=== PATIENT | female | born 1955 | race Caucasian/White ===

== ENCOUNTER 2017-12-04 10:58 | Day surgery (SDC) | payer OTHER, SELFPAY ==
--- NOTE | 2017-12-04 | COLBX_PTH ---
PATIENT: DESIREE EPPERSON LOC: EN U#:[id number] AGE/SX: 61/F ROOM: RE12/04/[address]: Dr. Max Jones MD : 1955 BED: DIS: 12/04/2017 SPEC #: [id number] RECD: 12/04/17 14:21 STATUS: VERONICA VEENA #: [id number] NORY: 12/04/17 00:[address]: Max Jones DEPT: SURGICAL PATHOLOGY RECD BY: Minh Dalal ENTERED: 12/04/17 14:22 SP TYPE: COLON BX OTHR DR: Dr. Terry Murdock MD Tissues: Cecum, NOS Procedures: Surgery Specimen Level IV HEADER OPERATION: Colonoscopy (MAC) PRE-OP DIAGNOSIS: Screening, previous colon polyps TISSUE SUBMITTED: Biopsy of cecal polyp MICROSCOPIC DIAGNOSIS Cecal polyp, biopsy: Tubular adenoma. SJ:angie 12/05/17 MICROSCOPIC DESCRIPTION Slides are reviewed. GROSS DESCRIPTION Received in fixative is one container labeled with the patient's name and designated cecal polyp. The specimen consists of one irregular fragment of light burden soft tissue that measures 0.2 x 0.2 x 0.1 cm. The specimen is totally submitted in one cassette. / AM:angie 12/04/17 TC:1 CPT: 07727
--- NOTE | 2017-12-04 07:31 | HP.PCM_ITS ---
History and Physical Date of Admission: 12/04/17 HISTORY AND PHYSICAL ? Verónica Blas 1955 ? REFERRING PHYSICIAN: ~~Self ? CHIEF COMPLAINT: ~~colon consult ? HPI: The patient is a 61 year old female referred for endoscopy. ~Verónica notes no history of colon complaints. ~She denies any change in bowel habits, weight changes, blood in stools, black tarry stools or abdominal pain. ~She notes a maternal aunt and uncle with colon cancer but no first-degree relatives with colon cancer. ~The patient ~notes no history of upper GI complaints aside from rare episodes of reflux. ? Verónica has ~undergone prior endoscopy. ~Last was in [address] Adame with removal of adenomatous polyp, 3-year follow-up recommended. ? Past medical history is significant for hypertension, hyperlipidemia, type II diabetes mellitus controlled with glucophage, depression, obesity. ~She denies any chest pain, shortness of breath or recent hospitalizations. ~Patient noted recall from a prior procedure done with moderate sedation. ~Her most recent endoscopy procedure was done under Monitored Anesthetic Care and patient did well with this. ? ? PAST?MEDICAL?HISTORY PAST MEDICAL HISTORY Diagnosis Date ? Colon polyps ? ? Depression with anxiety ? ? Diabetes mellitus, type II (HCC) ? ? GERD (gastroesophageal reflux disease) ? ? Hyperlipidemia ? ? d/c self from zocor b/c of myalgias ? Migraine ? ? Obesity (BMI 30-39.9) ? ? RAJ (obstructive sleep apnea) ? ? noncompliant with CPAP ~~ ? ? PAST?SURGICAL?HISTORY PAST SURGICAL HISTORY Procedure Laterality Date ? COLONOSCOP W/ OR W/O [facility] SPEC ? 11/02/11 ? Colonoscopy repeat 3 years ? COLONOSCOPY ? 2001 ? EGD W/O OR W/BRUSH/WASH ? 11/02/11 ? EGD ? HYSTERECTOMY HX ? 1999 ? Dr. Silva. For excessive bleeding ? PAST SURGICAL HISTORY OF ? 1997 aprox. ? lumbar discectomy L5 ? PAST SURGICAL HISTORY OF ? 2005 ? Lap emilee. ~ ? ? ? CURRENT?MEDICATIONS ? Current Outpatient Prescriptions: ascorbic acid (VITAMIN C) 500 mg tablet Take 500 mg by mouth once daily. citalopram (CELEXA) 20 mg tablet Take 1 tablet by mouth once daily. Valsartan-Hydrochlorothiazide (DIOVAN HCT) 80-12.5 mg per tablet Take 1 tablet by mouth once daily. metoprolol succinate ER (TOPROL XL) 25 mg 24 hr tablet Take 1 tablet by mouth once daily. simvastatin (ZOCOR) 40 mg tablet TAKE 1 TABLET DAILY AT BEDTIME FOR CHOLESTEROL metFORMIN (GLUCOPHAGE) 500 mg tablet TAKE 2 TABLETS WITH BREAKFAST AND 1 TABLET AT LUNCHTIME diclofenac sodium (VOLTAREN) 1 % topical gel Apply 2-4 g to affected area four times daily. Blood-Glucose Meter (ONE TOUCH ULTRAMINI) monitoring kit 1 Each as needed. blood sugar diagnostic (ONE TOUCH ULTRA TEST) test strip Use as instructed daily, 250.00, no insulin. Lancets (ONE TOUCH ULTRASOFT LANCETS) lancets Test blood sugar(s) ~1 times daily. Dx:250.00, Insulin: no. Cyanocobalamin 1,000 mcg TbER Take 1 capsule by mouth once daily. [place]-3 Fatty Acids-Vitamin E (FISH OIL) 1,000 mg cap Take 1 capsule by mouth. ~ CALCIUM CARBONATE/VITAMIN D3 (CALCIUM 500 + D, D3, ORAL) Take ~by mouth. ~ omeprazole 20 mg capsule Take 20 mg by mouth as needed. ~ ? No current facility-administered medications for this visit. ? ALLERGIES: Demerol [Meperidine (Pf)]; Lisinopril; Vicodin [Hydrocodone- Acetaminophen] ? PERSONAL HISTORY: SOCIAL?HISTORY Social History ~~Marital status: ~~~~~~~~~~~~Spouse name: Pasquale ~~~~~~~~~~~ ~~Years of education: ~~~~~~~~~~~~~~~~Number of children: 2 ~~~~~~~~ ? Occupational History Occupation ~~~~~~~~~Employer ~~~~~~~~~~~Comment ~~~~~~~~~~~~ [employer] ~~~~~[employer] MD ~~~~~ ? Social History Main Topics ~~Smoking status: Former Smoker ~~~~~~~~~~~~~~~~~~~~~~~~~~~~~~~~~~~~~~~~~~~~~~~~ ~~~~~~~~ ~~~~~Packs/day: 1.00 ~~~~~Years: 10.00 ~~ ~~~~~Types: Cigarettes ~~~~~Quit date: 01/16/2011 ~~Smokeless tobacco: Never Used ~~~~~~~~~~~~~~~~~~~ ~~Alcohol use: Yes ~~~~~~~~ ~~~~~Comment: social- couple times a week ~~Drug use: No ~~~~~~~~~ ~~Sexual activity: Yes ~~~~~~~~~~~~~~Partners with: Male ~~~~~Comment: goes by Rosa Isela (rhymes with Carly) ? ~~ ? FAMILY HISTORY: FAMILY?HISTORY FAMILY HISTORY Problem Relation Age of Onset ? Asthma Father ? ? Colon Cancer Maternal Aunt ? ? Colon Cancer Maternal Uncle ? ? Colon Cancer Maternal Uncle ? ? Emphysema Maternal Aunt ? ? Heart Maternal Aunt ? ? Heart Paternal Uncle ? ? ? CABG ? Diabetes Paternal Uncle ? ? Diabetes Paternal Uncle ? ? Heart Paternal Uncle ? ? ? NC ? Hypertension Paternal Uncle ? ? Ischemic Heart Disease Paternal Uncle ? ? Alcohol/Drug Sister ? ? ? REVIEW OF SYMPTOMS: ~~The review of systems data was entered by the nurse and reviewed by me ? Nursing Notes: Raisa Rahman LPN ~09/22/2017 ~8:25 AM ~Signed REVIEW OF SYSTEMS: ~~~~~General:~~~The patient denies fatigue, denies weight loss, denies weight gain, denies feeling hot, and denies feelings of cold. ~~~~~Eyes: ~The patient denies glaucoma, NOTES eye injury/surgery, does not wear glasses or contacts. ~~~~~Ear/Nose/Throat: ~The patient denies allergies, denies hayfever, denies ear infections, and denies bloody noses. ~~~~~Cardiovascular: ~The patient denies chest pain, denies heart disease, NOTES high blood pressure,denies cardiac stent, denies prior heart attack, denies irregular heart beat, NOTES high cholesterol, ~denies poor circulation, denies heart failure, other cardiac issues, denies claudication, denies cold feet, denies peripheral arterial stent. ~~~~~Respiratory: ~The patient denies tuberculosis, denies pneumonia, denies frequent cough, denies pulmonary embolism, denies shortness of breath, and denies coughing up blood. ~~~~~Gastrointestinal: ~The patient denies difficulty swallowing, NOTES acid reflux, denies ulcers, denies vomiting, denies jaundice/hepatitis, denies gallbladder problems, denies black or tarry stools, denies hemorrhoids, denies bleeding from rectum, denies diverticulitis, denies constipation, NOTES diarrhea , denies loss of stool control, and denies hernias. ~~~~~Kidney/Bladder: ~The patient denies kidney stones, denies urine infections , and denies bloody urine. ~~~~~Skin: ~The patient denies a history of skin cancer, denies bleeding/ changing moles, and denies a history of skin rash. ~~~~~Neurologic: ~The patient denies a history of epilepsy/convulsions, NOTES headaches, denies head/spinal injuries, and denies stroke/TIA. ~~~~~Psychiatric: ~The patient denies psychiatric medications, NOTES depression , and denies voices, denies substance abuse. ~~~~~Endocrine: ~The patient denies thyroid disorders, NOTES diabetes, and denies hormonal problems. ~~~~~Hematologic: ~The patient denies a history of bruising, denies bleeding, and denies anemia, denies blood clots. ~~~~~Infections: ~The patient denies a history of measles and mumps, denies rheumatic fever, and denies sexually transmitted diseases. ~~~~~Musculoskeletal: ~The patient denies back pain/injury, NOTES back problems , denies sciatica, denies knee/foot trouble, NOTES arthritis, or denies gout. ? ? When was patient's last Mammogram screening? 09/2017 ? ~Last Colonoscopy: ~2011 [facility] ? Raisa Rahman LPN ? Raisa Rahman LPN ~09/22/2017 ~8:45 AM ~Signed BP recheck 152/84. ~I have confirmed and edited as necessary, the PFSH and ROS obtained by others. ? PHYSICAL EXAMINATION: ? General: ~The patient is 61 year old female, well nourished, well hydrated in no acute distress. ~The patient is oriented to time, place, and person. ? VITALS: Blood pressure 168/100, pulse 80, weight 95.3 kg (210 lb).~Body mass index is 38.1 kg/m?.~Repeat BP 152/84 ? HEENT: ~Normal cephalic, ataumatic, pupils are equally round, sclera are anicteric, mucous membranes are moist, oropharynx is clear. ~Neck has no masses , asymmetry or lymphadenopathy. ~ ? Respiratory: ~Clear to auscultation and percussion. ~Normal respiratory excursion and pattern. ? Cardiac: ~Examination is regular rate and rhythm. ? Abdominal exam: ~Soft, nontender, ~with no palpable masses. ~No hepatosplenomegaly. ~No palpable hernias. ? Rectal exam: exam deferred ? Extremities: ~no clubbing, cyanosis or edema. ~No adenopathy. ? ? LABORATORY VALUES: As Noted ? RADIOLOGIC STUDIES: ~As Noted ? Assessment ~ IMPRESSION: encounter for screening colonoscopy ? PLAN: ~We will plan for screening colonoscopy.~~We discussed the risks and benefits of the planned endoscopy. ~I have informed the patient that complications can occur including failure to complete the endoscopy and perforation. ~The patient had the opportunity to ask questions concerning the planned endoscopy. ~My staff has also explained the procedure to the patient in understandable terms and has given the patient printed material concerning the procedure. ~The patient freely consents to surgery. ? I plan to use Miralax bowel preparation for endoscopy ? The patient has recall from their previous endoscopy performed under conscious sedation. ~I therefore plan to perform the procedure under monitored anesthetic care. ? Diagnoses: (Z86.010) Personal history of colonic polyps ~(primary encounter diagnosis) ? ~This note will be forwarded to Dr. Raúl Murdock MD. ~~ Return to Clinic: The patient is instructed to follow-up with me 1 week post operatively. ? Nilsa Alfaro PA-C
[2017-12-04 11:23] VITALS: BP 168/99; PULSE 108; RESP 16; TEMP 37.4; O2SAT 100; BMI 34.7
[2017-12-04 11:31] LABS: Bedside Glucose 147 mg/dL (70-110)
--- NOTE | 2017-12-04 12:46 | OP.ENDO_ITS ---
Patient Name: Verónica Blas Procedure Date: 12/04/2017 12:17 PM Date of : 1955 Age: 61 Procedure: Colonoscopy Indications: High risk colon cancer surveillance: Personal history of colonic polyps Providers: Max Jones MD Medicines: Monitored Anesthesia Care Patient Profile: This is a 61 year old female. Refer to note in patient chart for documentation of history and physical. Last Colonoscopy: 3 years ago. Complications: No immediate complications. Procedure: Pre-Anesthesia Assessment: - Prior to the procedure, a History and Physical was performed, and patient medications and allergies were reviewed. The patient is competent. The risks and benefits of the procedure and the sedation options and risks were discussed with the patient. All questions were answered and informed consent was obtained. Patient identification and proposed procedure were verified by the physician, the nurse and the cover seamer in the procedure room. Mental Status Examination: alert and oriented. Airway Examination: normal oropharyngeal airway and neck mobility. Respiratory Examination: clear to auscultation. CV Examination: normal. Prophylactic Antibiotics: The patient does not require prophylactic antibiotics. Prior Anticoagulants: The patient has taken no previous anticoagulant or antiplatelet agents. ASA Grade Assessment: II - A patient with mild systemic disease. After reviewing the risks and benefits, the patient was deemed in satisfactory condition to undergo the procedure. The anesthesia plan was to use moderate sedation / analgesia (conscious sedation). Immediately prior to administration of medications, the patient was re-assessed for adequacy to receive sedatives. The heart rate, respiratory rate, oxygen saturations, blood pressure, adequacy of pulmonary ventilation, and response to care were monitored throughout the procedure. The physical status of the patient was re-assessed after the procedure. After I obtained informed consent, the scope was passed under direct vision. Throughout the procedure, the patient's blood pressure, pulse, and oxygen saturations were monitored continuously. The colonoscope was introduced through the anus and advanced to the cecum, identified by the appendiceal orifice, ileocecal valve and palpation. The colonoscopy was performed without difficulty. The patient tolerated the procedure well. The quality of the bowel preparation was good. Scope In: 12:26:51 PM Scope Withdrawal Time 0 hours 6 minutes 39 seconds Scope Out: 12:41:12 PM Total Procedure Duration Time 0 hours 14 minutes 21 seconds Findings: The perianal and digital rectal examinations were normal. A diminutive polyp was found in the cecum. The polyp was sessile. The polyp was removed with a hot biopsy forceps. Resection and retrieval were complete. Many medium-mouthed diverticula were found in the entire colon. The exam was otherwise without abnormality. The retroflexed view of the distal rectum and anal verge was normal and showed no anal or rectal abnormalities. Impression: - One diminutive polyp in the cecum, removed with a hot biopsy forceps. Resected and retrieved. - Diverticulosis in the entire examined colon. - The examination was otherwise normal. - The distal rectum and anal verge are normal on retroflexion view. Recommendation: - Discharge patient to home. - Resume previous diet. - Continue present medications. - Telephone my office for pathology results in 1 week. - Repeat colonoscopy in 5 years for screening purposes. Procedure Code(s): --- Professional --- 64494, Colonoscopy, flexible; with removal of tumor(s), polyp(s), or other lesion(s) by hot biopsy forceps Diagnosis Code(s): --- Professional --- Z86.010, Personal history of colonic polyps CPT copyright 2017 [employer]. All rights reserved. The codes documented in this report are preliminary and upon rating examiner review may be revised to meet current compliance requirements. Max Jones MD 12/04/2017 12:45:34 PM This report has been signed electronically. Number of Addenda: 0 Note Initiated On: 12/04/2017 12:17 PM
[2017-12-04 12:47] VITALS: BP 120/74; BP 168/99; PULSE 93; RESP 16; TEMP 37.2; O2SAT 93
[2017-12-04 12:50] VITALS: BP 127/69; BP 168/99; PULSE 87; RESP 16; O2SAT 94
[2017-12-04 12:55] VITALS: BP 138/87; BP 168/99; PULSE 84; RESP 16; O2SAT 94
[2017-12-04 13:02] VITALS: BP 148/87; BP 168/99; PULSE 84; RESP 16; TEMP 37.4; O2SAT 97
[2017-12-04 13:18] VITALS: BP 168/99
== END 2017-12-04 13:28 | disposition home or self-care (01) ==
LOC: EN 11:00 → AC 11:01
PROVIDERS: Family Provider Family Medicine; PCP Family Medicine; Visit Provider Surgery
PROC: 0DJD8ZZ Inspection of Lower Intestinal Tract, Via Natural or Artificial Opening Endoscopic (ICD-10-PCS; CPT 45378; principal; 2017-12-04 11:55)
DX: Z12.11 Encounter for screening for malignant neoplasm of colon (principal); D12.0 Benign neoplasm of cecum; Z86.010 Personal history of colon polyps; E11.9 Type 2 diabetes mellitus without complications; I10 Essential (primary) hypertension; E78.5 Hyperlipidemia, unspecified; G47.33 Obstructive sleep apnea (adult) (pediatric); K21.9 Gastro-esophageal reflux disease without esophagitis; E66.9 Obesity, unspecified; F32.9 Major depressive disorder, single episode, unspecified; Z78.0 Asymptomatic menopausal state; Z91.19 Patient's noncompliance with other medical treatment and regimen; Z79.84 Long term (current) use of oral hypoglycemic drugs; Z79.899 Other long term (current) drug therapy; Z87.891 Personal history of nicotine dependence; Z80.0 Family history of malignant neoplasm of digestive organs
CPT/HCPCS: 45384; 82962; 88305; J7120

== ENCOUNTER 2023-03-09 17:12 | Emergency (ER) | payer OTHER, SELFPAY ==
[2023-03-09 17:13] VITALS: BP 193/74; PULSE 117; RESP 22; TEMP 36.6; O2SAT 94; BMI 36.8
--- NOTE | 2023-03-09 19:12 | RAD_ITS ---
INDICATION: cough EXAMINATION/TECHNIQUE: X-RAY - XR Chest 1 View COMPARISON: FINDINGS: LINES/DEVICES: None. LUNGS: No consolidation, edema or effusion. Interstitial prominence. No pneumothorax. MEDIASTINUM AND CARDIOVASCULAR STRUCTURES: Cardiac silhouette not enlarged. Central airways and mediastinal contour are unremarkable. BONES AND SOFT TISSUES: Degenerative vertebral changes. RAD/Chest 1 View (Portable) IMPRESSION: Interstitial prominence. Electronically Signed: Nicola Xiong DO at 19:44 EST ,
--- NOTE | 2023-03-09 19:13 | EX.ED.DYSGE1 ---
HPI History of Present Illness Chief Complaint: General Illness Informant: patient Onset/Context/Timing Onset: Weeks Context: Gradual Onset Timing: Intermittent Current Severity: Mild Maximum Severity: Mild Narrative Narrative: 67-year-old female past medical history of diabetes. She has had a 3-week history of cough productive of phlegm. Saw her nurse practitioner who treated her with a Z-Steven. Said that improved but now has dysuria and a fever of 101. Mild right flank pain. Today has had some nausea and vomiting and loose stools. No trouble breathing. States her blood sugars have been running around 200. Prior similar symptoms: Yes Recent Illness/Hospitalization: No PFSH [facility] Medical History (Updated 03/09/23 @ 21:[address] Yasmani Kearney MD) Anxiety CPAP (continuous positive airway pressure) dependence Depression Diabetes Former smoker GERD (gastroesophageal reflux disease) Hypertension Osteoporosis Home Medications citalopram 20 mg tablet 20 mg PO DAILY 12/03/16 [History Last Taken Unknown] metformin 500 mg tablet 1,000 mg PO DAILY 12/03/16 [History Last Taken Unknown] oxycodone-acetaminophen 5 mg-325 mg tablet 1 - 2 tab PO Q4H PRN PRN Pain #20 tabs 12/03/16 [Rx Last Taken Unknown] calcium carbonate 500 mg-vitamin D3 5 mcg (200 unit) tablet (Calcium 500 + D) 1 ea PO DAILY 12/16/16 [History Last Taken Unknown] ibuprofen 200 mg tablet 200 mg PO Q6H PRN Pain 12/16/16 [History Last Taken Unknown] meloxicam 15 mg tablet 15 mg PO BID 03/09/23 [History Last Taken Unknown] rosuvastatin 20 mg tablet 20 mg PO DAILY 03/09/23 [History Last Taken Unknown] semaglutide 0.25 mg or 0.5 mg (2 mg/3 mL) subcutaneous pen injector (Ozempic) 0.5 mg subcut .weekly 03/09/23 [History Last Taken 03/05/23] sulfamethoxazole 800 mg-trimethoprim 160 mg tablet (Bactrim DS) 1 tab PO BID 10 days #20 tabs 03/09/23 [Rx Last Taken Unknown] valsartan 80 mg tablet 80 mg PO DAILY 03/09/23 [History Last Taken Unknown] Allergy/AdvReac Type Severity Reaction Status Date / Time meperidine [From Demerol] AdvReac Nausea/Vom/ Verified 12/01/17 09:00 Diarrhea Surgical History (Updated 03/09/23 @ 19:33 by Alessia Olivarez) History of cholecystectomy Social History Smoking Status: Former smoker ROS ROS ED ROS Narrative Is a, vomiting and diarrhea. Fever. Dysuria. Review of Systems ROS Unobtainable: Denies due to encephalopathy Constitutional Constitutional ED: Reports chills and fever(s) Eyes Eyes: Denies blurry vision ENT ENT ED: Denies ear pain Cardiovascular Cardiovascular: Denies chest pain Respiratory/Chest Respiratory/Chest: Reports cough Gastrointestinal Gastrointestinal: Reports abdominal pain, diarrhea, nausea and vomiting; Denies constipation or melena Genitourinary Genitourinary ED: Reports dysuria; Denies hematuria Musculoskeletal Musculoskeletal: Reports back pain; Denies arthralgias or myalgias Integumentary Denies abscess or Abrasions Neurologic Neurologic: Denies headache(s) Psychiatric Psychiatric: Denies anxiety Endocrine Endocrinology: Denies cold intolerance Hematologic/Lymphatic Hematologic/Lymphatic: Reports none Allergic/Immunologic Allergic/Immunologic ED: Denies mouth swelling, tongue swelling or urticaria EXAM Physical Exam Narrative Exam Narrative: 67-year-old female no acute distress vital signs stable afebrile. Pulse ox 94% on room air no signs hypoxia. H EENT exam unremarkable. Neck nontender. Lungs clear to auscultation bilaterally. Heart tachycardic rate of 150 no murmur. Chest wall nontender. Abdomen soft nondistended normal bowel sounds no peritoneal signs. No right upper or right lower quadrant tenderness. Extremities moves all 4. Calves are nontender that edema or cords. No rashes. No cellulitis. Back nontender. Neurologically she is awake alert no focal motor deficits. Const Vital Signs: 03/09/23 17:13 03/09/23 21:08 Temperature 97.8 F 98.3 F Temperature Source Temporal Oral Pulse Rate 117 H 80 Respiratory Rate 22 H 16 Blood Pressure 193/74 H 123/64 H Blood Pressure Mean 113 83 Pulse Ox 94 97 Oxygen Delivery Method Room Air Room Air Positive well nourished and well developed; Negative for cachectic or contractures General Appearance ED: well developed and NAD; Negative for cachectic, contractures, cyanotic, diaphoretic or pallor Nutritional Appearance: Negative for cachectic HEENT Reports moist mucous membranes; Denies dry mucous membranes Negative for trauma or tenderness Mouth ED: No dry mucous membranes Mouth: No dry mucous membranes Eyes PERRL and EOMs intact bilaterally General Eye ED: Negative for pale conjunctiva or scleral icterus Neck no lymphadenopathy, supple and no JVD General: Negative for tenderness Lymph Lymphatic: Negative for other Chest Wall inspection of chest normal and palpation of chest normal Chest: Negative for other Resp normal respiratory effort and clear to auscultation bilaterally Effort and Inspection: Negative for retractions Auscultation: Negative for rales, rhonchi or wheezes Cardio regular rhythm, S1 normal heart sound, S2 normal heart sound and no murmurs; Negative for regular rate Rate: tachycardic Rhythm: Negative for abnormal rhythm GI normal to inspection, nondistended, normoactive bowel sounds, non-tender, non-distended and no masses Inspection: Negative for abdominal distention Auscultation: normoactive bowel sounds Palpation: soft; Negative for tender, guarding or mass Bladder / Kidney Exam: No other Back/Spine no CVA tenderness General Back: Negative for CVA tenderness Cervical Spine: Negative for cervical spine tenderness Thoracic Spine / Upper Back: Negative for thoracic spinal tenderness Lumbar Spine / Lower Back: Negative for lumbar spinal tenderness Extremity normal to inspection General Extremety ED: Negative for edema or tenderness General Extremity: Negative for edema Neuro oriented x3 and CN's II-XII intact bilaterally Sensorium / Orientation: alert; Negative for orientation impaired, lethargic or stuporous Motor Exam: strength 5/5 throughout Psych mental status grossly normal Appearance: Negative for other Attitude: No agitated Mood & Affect: Negative for depressed, anxious or tearful Skin no rashes or lesions noted, no wounds and skin turgor normal General Skin Exam: elasticity normal; Negative for jaundice or pallor Lesions: No lesion noted Rashes: No rashes noted Trauma: Negative for abrasion Wounds: Negative for wounds noted MDM MDM MDM Narrative Medical decision making narrative: Patient with nausea vomiting diarrhea and dysuria. He is a UTI or viral syndrome. Chest x-ray and labs pending. IV fluids. Zofran for nausea. Negative flu test done today at the urgent care per the patient. Patient is doing well at 9:55 PM. On repeat exam. She ambulated to the bathroom. We went over her test results. She has a UTI and may be an early pyelonephritis. Will give a dose of IV Rocephin here. Placed on Bactrim 1 twice daily for 10 days at home. Outpatient follow-up. Fluids and rest. Return if feeling worse. Otherwise follow-up with her primary care provider to ensure she is improving. A urine culture was sent. History & Record Review Discussion w/independent historian: Patient Additional record(s) reviewed:: Prior inpatient record, Prior outpatient record, Prior ED visit and Prior labs Lab Data Attestation: I reviewed the patient's lab results. Lab results narrative: CBC Shows an elevated white count of 16. H&H of 12 and 36. Platelets of 317,000. Chemistries show sodium 133. Gap 10. Normal BUN and creatinine. Glucose 309. Small Liver enzymes unremarkable other than alk phos of 127. Urinalysis shows 25-50 white cells, 5-10 red cells and 3+ bacteria consistent with UTI. Urine culture be sent. Labs: Laboratory Results - last 24 hr 03/09/23 03/09/23 03/09/23 20:50 20:50 20:55 WBC Cancelled Corrected WBC Cancelled RBC Cancelled Hgb Cancelled Hct Cancelled MCV Cancelled MCH Cancelled MCHC Cancelled RDW Std Deviation Cancelled RDW Coeff of Valerie Cancelled Plt Count Cancelled MPV Cancelled Immature Gran % (Auto) Cancelled Neut % (Auto) Cancelled Lymph % (Auto) Cancelled Bath % (Auto) Cancelled Eos % (Auto) Cancelled Baso % (Auto) Cancelled Absolute Neuts (auto) Cancelled Absolute Lymphs (auto) Cancelled Total Counted Cancelled Neutrophils % (Manual) Cancelled Band Neutrophils % Cancelled Lymphocytes % (Manual) Cancelled Monocytes % (Manual) Cancelled Eosinophils % (Manual) Cancelled Basophils % (Manual) Cancelled Metamyelocytes % Cancelled Myelocytes % Cancelled Promyelocytes % Cancelled Blast Cells % Cancelled Plasma Cell % (Manual) Cancelled Other Cells % Cancelled Nucleated RBC % Cancelled Nucleated RBCs/100 WBC Cancelled Differential Comment Cancelled Diff Path Review Cancelled Hypersegmented Neuts Cancelled Atypical Lymphocytes Cancelled Reactive Lymphocytes Cancelled Smudge Cells Cancelled Toxic Granulation Cancelled Toxic Vacuolation Cancelled Dohle Bodies Cancelled Leo Rods Cancelled Platelet Estimate Cancelled Plt Morphology Comment Cancelled RBC Morphology Cancelled Cancelled Polychromasia Cancelled Hypochromasia Cancelled Poikilocytosis Cancelled Basophilic Stippling Cancelled Anisocytosis Cancelled Microcytosis Cancelled Macrocytosis Cancelled Spherocytes Cancelled Sickle Cells Cancelled Target Cells Cancelled Tear Drop Cells Cancelled Ovalocytes Cancelled Stomatocytes Cancelled Bentley-Stoy Bodies Cancelled Irving Cells Cancelled Bite Cells Cancelled Crenated Cell Cancelled Acanthocytes (Spur) Cancelled Rouleaux Cancelled Schistocytes Cancelled Sodium 133 L Potassium 3.7 Chloride 102 Carbon Dioxide 21.0 Anion Gap 10 BUN 15 Creatinine 0.78 Estim Creat Clear Calc 43.18 Est GFR (MDRD) Af Amer 95 Est GFR (MDRD) Non-Af 78 BUN/Creatinine Ratio 19.2 Glucose 309 H Calcium 9.0 Total Bilirubin 0.70 AST 41 H ALT 36 Alkaline Phosphatase 127 H Total Protein 6.5 Albumin 3.1 L Globulin 3.4 Albumin/Globulin Ratio 0.9 Urine Color Yellow Urine Clarity Cloudy Urine pH 6.0 Ur Specific Palmer 1.015 Urine Protein 500 H Urine Glucose (UA) 100 H Urine Ketones 150 A* Urine Occult Blood 250 H Urine Nitrite Negative Urine Bilirubin 1 H Urine Urobilinogen 1 H Ur Leukocyte Esterase 500 H Urine RBC 5-10 SEEN Urine WBC 25-50 SEEN Ur Squamous Epith Cells 0-5 SEEN Urine Bacteria 3+ Urine Mucus 0 SEEN 03/09/23 21:16 WBC 16.0 H Corrected WBC RBC 4.10 L Hgb 12.5 Hct 36.6 L MCV 89.3 MCH 30.5 MCHC 34.2 RDW Std Deviation 39.2 RDW Coeff of Valerie 12.1 Plt Count 317 MPV 10.0 Immature Gran % (Auto) 0.400 Neut % (Auto) 82.1 H Lymph % (Auto) 4.7 L Bath % (Auto) 7.8 Eos % (Auto) 4.6 Baso % (Auto) 0.4 Absolute Neuts (auto) 13.1 H Absolute Lymphs (auto) 0.75 L Total Counted Neutrophils % (Manual) Band Neutrophils % Lymphocytes % (Manual) Monocytes % (Manual) Eosinophils % (Manual) Basophils % (Manual) Metamyelocytes % Myelocytes % Promyelocytes % Blast Cells % Plasma Cell % (Manual) Other Cells % Nucleated RBC % 0 Nucleated RBCs/100 WBC Differential Comment Diff Path Review Hypersegmented Neuts Atypical Lymphocytes Reactive Lymphocytes Smudge Cells Toxic Granulation Toxic Vacuolation Dohle Bodies Leo Rods Platelet Estimate ADEQUATE Plt Morphology Comment RBC Morphology N CHROM Polychromasia Hypochromasia Poikilocytosis Basophilic Stippling Anisocytosis RARE Microcytosis Macrocytosis RARE Spherocytes Sickle Cells Target Cells Tear Drop Cells Ovalocytes RARE Stomatocytes Bentley-Stoy Bodies Soni Cells Bite Cells Crenated Cell Acanthocytes (Spur) Rouleaux Schistocytes Sodium Potassium Chloride Carbon Dioxide Anion Gap BUN Creatinine Estim Creat Clear Calc Est GFR (MDRD) Af Amer Est GFR (MDRD) Non-Af BUN/Creatinine Ratio Glucose Calcium Total Bilirubin AST ALT Alkaline Phosphatase Total Protein Albumin Globulin Albumin/Globulin Ratio Urine Color Urine Clarity Urine pH Ur Specific Palmer Urine Protein Urine Glucose (UA) Urine Ketones Urine Occult Blood Urine Nitrite Urine Bilirubin Urine Urobilinogen Ur Leukocyte Esterase Urine RBC Urine WBC Ur Squamous Epith Cells Urine Bacteria Urine Mucus Radiography Chest X-Ray - ED: 1 View and Read by ED Physician Diagnostic Testing: Clinical Impression(s) from Imaging Studies Chest X-Ray 03/09/23 19:12 IMPRESSION: Interstitial prominence. Electronically Signed: Nicola Xiong DO at 19:44 EST Reading Location ID and State: [facility] / [place] Tel [phone], Service support , Discharge Plan Triage Chief Complaint: General Illness ED Provider: Yasmani Kearney Dx/Rx/DC Orders Clinical Impression: Acute pyelonephritis, Hyperglycemia due to diabetes mellitus, Leukocytosis, Acute UTI Instructions: ED Pyelonephritis, Female (Adult) Prescriptions: New sulfamethoxazole-trimethoprim [Bactrim DS] 800-160 mg tablet 1 tab PO BID 10 Days Qty: 20 0RF No Action metformin 500 MG tablet 1,000 mg PO DAILY Patient Comments: citalopram 20 MG tablet 20 mg PO DAILY Patient Comments: oxycodone-acetaminophen 1 TABLET tablet 1 - 2 tab PO Q4H PRN PRN (Reason: Pain) Qty: 20 0RF ibuprofen 200 MG tablet 200 mg PO Q6H PRN (Reason: Pain) calcium carbonate-vitamin D3 [Calcium 500 + D] 1 EACH tablet 1 ea PO DAILY meloxicam 15 mg tablet 15 mg PO BID Patient Comments: TAKE 1 TABLET BY MOUTH EVERY DAY rosuvastatin 20 mg tablet 20 mg PO DAILY Patient Comments: TAKE 1 TABLET BY MOUTH ONCE DAILY Ozempic 0.25 mg or 0.5 mg (2 mg/3 mL) pen injector 0.5 mg SUBCUT .weekly Patient Comments: INJECT 0.5 (ONE HALF) MILLIGRAM UNDER SKIN ONCE A WEEK valsartan 80 mg tablet 80 mg PO DAILY Patient Comments: TAKE 1 TABLET BY MOUTH ONCE DAILY Primary Care Provider: [facility] Doctor,Out of Referrals: [facility] Doctor,Out of [Primary Care Provider] - 3-5 Days Activity Restrictions/Additional Instructions: Plenty of fluids and rest. Water and cranberry juice. Follow-up with your primary care provider to ensure you are improving. Return if feeling a lot worse. The antibiotic Bactrim 1 pill twice a day start tomorrow soon as you get it. Treated for 10 days in case this is already in your kidney. Disposition Disposition: Home, Self Care
--- OUTSIDE RECORDS SUMMARY | 2023-03-09 20:03 | XMS RPT_ITS | CCD ---
Author Name Unknown Address [address] [place] [address] Organization [facility] Care Team Providers Care Retail Sales Director Name Role Phone Avril Murdock MD Unavailable Avril Murdock MD Primary Care Provider ANDRADE AYALA NP Attending Unavailable ANDRADE AYALA CAR WASHER Consulting Unavailable ANDRADE AYALA CAR WASHER Primary Care Unavailable ANDRADE AYALA CAR WASHER Admitting Unavailable PROVIDER, UNKNOWN Consulting Unavailable AVRIL MURDOCK Primary Care Unavailab le PODLOGAR, RASHAWN Referring Unavailable AVRIL MURDOCK Primary Care Unavailab le PODLOGAR, RASHAWN Attending Unavailable PODLOGAR, RASHAWN Attending Unavailable AVRIL MURDOCK Primary Care Unavailab le PODLOGAR, RASHAWN Referring Unavailable AVRIL MURDOCK Primary Care Unavailab AVRIL Fu Primary Care Unavailab AVRIL Fu Attending Unavailab le PODLOGAR, RASHAWN Referring Unavailable AVRIL MURDOCK Primary Care Unavailab AVRIL Fu Primary Care Unavailab le PODLOGAR, RASHAWN Attending Unavailable AVRIL MURDOCK Primary Care Unavailab le PODLOGAR, RASHAWN Referring Unavailable Avril Murdock MD Unavailable Avril Murdock MD Primary Care Provider Allergies Allergy Classification Reported Allergen(s) Allergy Type Date of Onset Reaction(s) Facility (20 sources) Acetaminophen / HYDROcodone; Translations: [HYDROCODONE-ACETA MINOPHEN] Drug Allergy 0 GI Upset [facility] (20 sources) empagliflozin; Translations: [EMPAGLIFLOZIN] Drug Allergy 0 Other: See Comments [facility] Work Phone: (20 sources) Lisinopril; Translations: [LISINOPRIL] Drug Allergy 8 Cough [facility] Work Phone: (20 sources) Meperidine; Translations: [MEPERIDINE (PF)] Drug Allergy 0 GI Upset [facility] Medications Completed/Discontinued Medications Medication Drug Class(es) Dates Sig (Normalized) Sig (Original) Blood-Glucose Meter (ONE TOUCH ULTRAMINI) monitoring kit (20 sources) Start: 05-07-2014 Blood-Glucose Meter (ONE TOUCH ULTRAMINI) monitoring kit Indications: Diabetes mellitus type II, controlled (HCC) 1 Each as needed. 1 Each 0 05/07/2014 Active Problems Problem Classification Problem Date Documented Da te Episodic/Chronic Anxiety disorders (20 sources) Mixed anxiety and depressive disorder; Translations: [Other specified anxiety disorders] Onset: 02-16-2010 09-17-2010 Chronic Diabetes mellitus with complications (1 source) Type 2 diabetes mellitus with hyperglycemia; Translations: [Type 2 diabetes mellitus with hyperglycemia] Onset: 11-25-2022 Chronic Diabetes mellitus without complication (20 sources) Type 2 diabetes mellitus without complication; Translations: [Type 2 diabetes mellitus without complications] Onset: 09-22-2014 02-12-2017 Chronic Disorders of lipid metabolism (20 sources) Hyperlipidemia; Translations: [Hyperlipidemia, unspecified] Onset: 09-17-2010 03-08-2021 Chronic Essential hypertension (20 sources) Essential hypertension; Translations: [Essential (primary) hypertension] Onset: 10-23-2015 10-23-2015 Chronic Other nutritional; endocrine; and metabolic disorders (5 sources) Obese class II; Translations: [Obesity, unspecified] Onset: 09-17-2010 Chronic Other screening for suspected conditions (not mental disorders or infectious disease) (4 sources) Patient encounter status; Translations: [Encounter for screening mammogram for malignant neoplasm of breast] Onset: 06-07-2022 Episodic Residual codes; unclassified (1 source) Obstructive sleep apnea syndrome; Translations: [Obstructive sleep apnea (adult) (pediatric)] Chronic Unclassified (16 sources) Obesity; Translations: [Class 2 obesity with serious comorbidity and body mass index (BMI) of 37.0 to 37.9 in adult] Onset: 09-17-2010 02-12-2017 Results Test Name Value Interpretation Reference Range Facil ity Vital Signs Date Time Vital Sign Value Performing Clinician Pb engle 05-24-2022 12:03-0400 Body weight 93.35 kg Rashawn Podlogar PIPE LINE GAUGER.SUPERVISOR [employer] Work Phone: [facility] 05-24-2022 12:03-0400 Diastolic blood pressure 78 mm[Hg] Rashawn Podlogar PIPE LINE GAUGER.SUPERVISOR [employer] Work Phone: [facility] 05-24-2022 12:03-0400 Heart rate 88 /min Rashawn Podlogar PIPE LINE GAUGER.SUPERVISOR [employer] Work Phone: [facility] 05-24-2022 12:03-0400 Respiratory rate 18 /min Rashawn Podlogar PIPE LINE GAUGER.SUPERVISOR [employer] Work Phone: [facility] 05-24-2022 12:03-0400 SaO2% (BldA) [Mass fraction] 95 % Rashawn Podlogar PIPE LINE GAUGER.SUPERVISOR [employer] Work Phone: [facility] 05-24-2022 12:03-0400 Systolic blood pressure 132 mm[Hg] Rashawn Podlogar PIPE LINE GAUGER.SUPERVISOR [employer] Work Phone: [facility] 02-01-2022 10:07-0500 Body weight 92.08 kg Rashawn Podlogar PIPE LINE GAUGER.SUPERVISOR [employer] Work Phone: [facility] 02-01-2022 10:07-0500 Diastolic blood pressure 84 mm[Hg] Rashawn Podlogar PIPE LINE GAUGER.SUPERVISOR [employer] Work Phone: [facility] 02-01-2022 10:07-0500 Heart rate 80 /min Rashawn Podlogar PIPE LINE GAUGER.SUPERVISOR [employer] Work Phone: [facility] 02-01-2022 10:07-0500 Respiratory rate 16 /min Rashawn Podlogar PIPE LINE GAUGER.SUPERVISOR [employer] Work Phone: [facility] 02-01-2022 10:07-0500 SaO2% (BldA) [Mass fraction] 95 % Rashanw Podlogar PIPE LINE GAUGER.SUPERVISOR [employer] Work Phone: [facility] 02-01-2022 10:07-0500 Systolic blood pressure 132 mm[Hg] Rashawn Podlogar PIPE LINE GAUGER.SUPERVISOR [employer] Work Phone: [facility] 11-16-2021 13:42-0400 Body weight 96.53 kg Rashawn Podlogar PIPE LINE GAUGER.SUPERVISOR [employer] Work Phone: [facility] 11-16-2021 13:42-0400 Diastolic blood pressure 84 mm[Hg] Rashawn Podlogar PIPE LINE GAUGER.SUPERVISOR [employer] Work Phone: [facility] 11-16-2021 13:42-0400 Heart rate 83 /min Rashawn Podlogar PIPE LINE GAUGER.SUPERVISOR [employer] Work Phone: [facility] 11-16-2021 13:42-0400 Respiratory rate 18 /min Rashawn Podlogar PIPE LINE GAUGER.SUPERVISOR [employer] Work Phone: [facility] 11-16-2021 13:42-0400 SaO2% (BldA) [Mass fraction] 96 % Rashawn Podlogar PIPE LINE GAUGER.SUPERVISOR [employer] Work Phone: [facility] 11-16-2021 13:42-0400 Systolic blood pressure 122 mm[Hg] Rashawn Podlogar PIPE LINE GAUGER.SUPERVISOR [employer] Work Phone: [facility] 10-19-2021 16:45-0400 Diastolic blood pressure 78 mm[Hg] Avril Murdock MD Work Phone: [facility] 10-19-2021 16:45-0400 Heart rate 96 /min Avril Murdock MD Work Phone: [facility] 10-19-2021 16:45-0400 Respiratory rate 16 /min Avril Murdock MD Work Phone: [facility] 10-19-2021 16:45-0400 SaO2% (BldA) [Mass fraction] 97 % Avril Murdock MD Work Phone: [facility] 10-19-2021 16:45-0400 Systolic blood pressure 132 mm[Hg] Avril Murdock MD Work Phone: [facility] 10-05-2021 15:08-0400 Body weight 97.61 kg Avril Murdock MD Work Phone: [facility] 10-05-2021 15:08-0400 Diastolic blood pressure 70 mm[Hg] Avril Murdock MD Work Phone: [facility] 10-05-2021 15:08-0400 Heart rate 100 /min Avril Murdock MD Work Phone: [facility] 10-05-2021 15:08-0400 Respiratory rate 16 /min Avril Murdock MD Work Phone: [facility] 10-05-2021 15:08-0400 SaO2% (BldA) [Mass fraction] 95 % Avril Murdock MD Work Phone: [facility] 10-05-2021 15:08-0400 Systolic blood pressure 134 mm[Hg] Avril Murdock MD Work Phone: [facility] Encounters Encounter Date Encounter Type Care Provider Facility Start: 11-25-2022 End: 11-25-2022 ambulatory [facility] Start: 08-23-2022 End: 08-24-2022 ambulatory AVRIL MURDOCK Facility:[facility] Start: 08-22-2022 End: 08-23-2022 ambulatory RASHAWN CORTEZ Facility:[facility] Start: 06-28-2022 End: 06-29-2022 ambulatory AVRIL MURDOCK Facility:[facility] Start: 06-10-2022 Telephone encounter Rashawn carranza PIPE LINE GAUGER.SUPERVISOR [employer] Work Phone: [facility] Procedures Date Procedure Procedure Detail Performing Clinician Start: 06-07-2022 Dxa bone density zoë dy 1/> sites axial eugenieel Rashawn Cortez PIPE LINE GAUGER.SUPERVISOR [employer] Work Phone: Start: 06-04-2020 Mammography Terry Murdock MD Work Phone: Start: 12-04-2017 Colonoscopy Terry Murdock MD Work Phone: Plan of Treatment Date Care Activity Detail Author Start: 01-03-2024 Hepatitis C antibody , confirmatory test Dilated Retinal Exam [facility] Start: 08-24-2023 Annual PCP Team Director [employer] fouzia Disease Visit Annual PCP Team Chronic Disease Visit [facility] Start: 08-24-2023 Pneumococcal Vaccine : 65+ (2 - PCV) Pneumococcal Vaccine: 65+ (2 - PCV) [facility] Immunizations Immunization Date Immunization Notes Care Provider Fa romana 03-01-2021 COVID-19 vaccine, ag e 12+ yr (PFIZER-BIONTECH - PURPLE TOP) Avril Murdock MD Work Phone: [facility] 02-16-2021 influenza, high-dose , quadrivalent vaccine (FLUZONE HIGH DOSE QUADRIVALENT) Avril Murdock MD Work Phone: [facility] 02-16-2021 pneumococcal polysaccharide vaccine, 23 valent Avril Murdock MD Work Phone: [facility] 02-16-2021 influenza virus vacc ine, unspecified formulation Bone Wstr Work Phone: [facility] 12-20-2018 influenza, injectabl e, quadrivalent, contains preservative Avril Murdock MD Work Phone: [facility] 11-27-2017 influenza, injectabl e, quadrivalent, contains preservative Avril Murdock MD Work Phone: [facility] 02-10-2017 influenza, injectabl e, quadrivalent, contains preservative Avril Murdock MD Work Phone: [facility] 10-15-2015 pneumococcal polysaccharide vaccine, 23 valent Avril Murdock MD Work Phone: [facility] 01-21-2013 influenza virus vacc ine, unspecified formulation Avril Murdock MD Work Phone: [facility] 01-21-2013 tetanus toxoid, redu daniele diphtheria toxoid, and acellular pertussis vaccine, adsorbed Avril Murdock MD Work Phone: [facility] Payers Date Payer Category Payer Private Health Insurance [facility] CHOICE PLUS [id number] 2013-Present [phone] [address] [address] [place] [address] O [id number] 2013 Private Health Insurance [facility] [employer] CHOICE PLUS [id number] 2013-Present [phone] [address] [address] [place] [address] O [id number] 2013 Private Health Insurance [id number] 1955 Unknown [id number] Social History Date Type Detail Facility Start: 10-19-2021 Tobacco smoking status NHIS Ex-smoke r [facility] End: 01-16-2011 History of tobacco use Current smoker [facility] End: 01-16-2011 History of tobacco use Cigarette Smoker [facility] Start: 03-16-2021 End: 05-24-2022 Alcohol intake Current drinker of alcohol (finding) [facility] Start: 12-06-2019 End: 02-01-2022 History SDOH Alcohol Frequency 2 [facility] Start: 12-06-2019 End: 02-01-2022 History SDOH Alcohol Std Drinks 1 [facility] Start: 10-31-2011 History SDOH Alcohol Comment social- couple times a week [facility] Start: 11-08-2019 History SDOH Social Connections Phone 5 [facility] Start: 11-08-2019 End: 02-01-2022 History SDOH Social Connections Get Together 4 [facility] Start: 11-08-2019 End: 02-01-2022 History SDOH Social Connections Sikhism 3 [facility] Start: 11-08-2019 Education 12 [facility] Start: 1955 Sex Assigned At Not on file C [facility] Start: 09-25-2021 End: 10-19-2021 Exposure to SARS-CoV-2 (event) Not sure [facility] Start: 10-19-2021 End: 03-31-2022 Cigarettes smoked current (pack per day) - Reported 1 [facility] Start: 10-19-2021 Tobacco use and exposure Smoke less tobacco non-user [facility] Start: 10-19-2021 End: 02-01-2022 History SDOH Alcohol Frequency 98 [facility] Start: 10-19-2021 History SDOH Physica l Activity DPW 0 [facility] Start: 02-01-2022 End: 03-31-2022 Social connection and isolation panel [facility] In a typical week, h ow many times do you talk on the telephone with family, friends, or neighbors? Patient refused [facility] Do you belong to any clubs or organizations such as pentecostal groups, unions, fraternal or athletic groups, or school groups? No [facility] Are you now , , , , never or living with a partner? [facility] How often to you hav e a drink containing alcohol? Monthly or less [facility] How many standard dr inks containing alcohol do you have on a typical day? 1 or 2 [facility] How often do you hav e 6 or more drinks on 1 occasion? Never [facility] How hard is it for y ou to pay for the very basics like food, housing, medical care, and heating Not very hard [facility] Do you feel stress - tense, restless, nervous, or anxious, or unable to sleep at night because your mind is troubled all the time - these days [OSQ] Only a little [facility] (I/We) worried wheth er (my/our) food would run out before (I/we) got money to buy more. Never true [facility] Medical Equipment Procedure Code Equipment Code Equipment Origin al Text Equipment Identifier Dates Start: 05-07-2014 End: 03-17-2022 Clinical Notes 09-14-2021 to 08-23-2022 Telephone Encounter - Vera Van MA - 06/13/2022 3:26 PM EDTTelephone Encounter - TOM Baig - 06/10/2022 11:16 AM MAYITCTereso delgadillo RT(Arin) - 06/07/2022 10:30 AM EDT Note Date & Type Note Facility 08-23-2022 Note HNO ID: [id number] Author: Avril Murdock MD Service: ? Author Type: Physician Type: Progress Notes Filed: 08/23/2022 12:25 PM Note Text: Chief Complaint Patient presents with: Follow Up: 3 month HPI Desiree Epperson is a 66 year old female who presents here today for Above Complaints.. DIABETES MELLITUS: Ms. Epperson was last seen 3 months ago. Since our last visit she denies excessive thirst or increased frequency of urination, numbness, tingling or pain in extremities, new or unusual visual symptoms, and low sugar/hypoglycemic reactions. Follows a diabetic diet generally not very much. She is compliant with medication(s) and is tolerating med(s) without any side effects. She reports checking her glucose on a twice a day schedule with sugars in the fasting <130 range typically. Before bed, typically <150 with rare readings in the 160-180 range. Patient's last HgA1C was Hemoglobin A1C (%) Date Value 08/22/2022 7.2 05/24/2022 7.6 02/16/2021 9.1 06/01/2020 8.2 ) Last Ophthalmology exam was within the past 12 months Last Podiatry exam was within the past 12 months Past medical history, appointments, medications, allergies reviewed. Previous Medical History PAST MEDICAL HISTORY Diagnosis Date Colon polyps Depression with anxiety Diabetes mellitus, type II (HCC) GERD (gastroesophageal reflux disease) Hyperlipidemia d/c self from zocor b/c of myalgias Hypertension Migraine Obesity (BMI 30-39.9) RAJ (obstructive sleep apnea) noncompliant with CPAP Previous Surgical History PAST SURGICAL HISTORY Procedure Laterality Date COLONOSCOPY 2001 COLONOSCOPY FLX DX W/COLLJ SPEC WHEN PFRMD 11/02/11 Colonoscopy repeat 3 years COLONOSCOPY FLX DX W/COLLJ SPEC WHEN PFRMD 12/04/2017 Colonoscopy ESOPHAGOGASTRODUODENOSCOPY TRANSORAL DIAGNOSTIC 11/02/11 EGD HYSTERECTOMY HX 1999 Dr. Silva. For excessive bleeding PAST SURGICAL HISTORY OF 1997 aprox. lumbar discectomy L5 PAST SURGICAL HISTORY OF 2005 Lap emilee. Family History FAMILY HISTORY Problem Relation Age of Onset Asthma Father Colon Cancer Maternal Aunt Colon Cancer Maternal Uncle Colon Cancer Maternal Uncle Emphysema Maternal Aunt Heart Maternal Aunt Heart Paternal Uncle CABG Diabetes Paternal Uncle Diabetes Paternal Uncle Heart Paternal Uncle [place] Hypertension Paternal Uncle Ischemic Heart Disease Paternal Uncle Alcohol/Drug Sister Patient Allergies ALLERGIES Allergen Reactions Demerol [Meperidine* GI Upset Jardiance [Empaglif* Other: See Comments Yeast infection Lisinopril Cough Vicodin [Hydrocodon* GI Upset Current Medications Current Outpatient Medications on File Prior to Visit Medication Sig metFORMIN (GLUCOPHAGE) 1,000 mg tablet Take 1 tablet by mouth twice daily with meals. rosuvastatin (CRESTOR) 20 mg tablet Take 1 tablet by mouth daily at bedtime. citalopram (CELEXA) 20 mg tablet Take 1 tablet by mouth once daily. valsartan (DIOVAN) 80 mg tablet Take 1 tablet by mouth once daily. hydrOXYzine pamoate (VISTARIL) 25 mg capsule Take 1-2 tablets as needed three times a day for anxiety glimepiride (AMARYL) 4 mg tablet Take 2 tablets by mouth daily with breakfast. SITagliptin phosphate (JANUVIA) 100 mg tablet Take 1 tablet by mouth once daily. hydroCHLOROthiazide 12.5 mg capsule Take 1 capsule by mouth once daily. vitamin I-beeechjtifxy-xkzycwo 500 mg chew Take by mouth. blood sugar diagnostic (BLOOD GLUCOSE TEST) test strip Test blood sugar(s) 2 times daily. Dx: Type 2 DM - Uncontrolled E11.65 Insulin: No Blood-Glucose Meter (ONE TOUCH ULTRAMINI) monitoring kit 1 Each as needed. Kabetogama-3 Fatty Acids-Vitamin E 1,000 mg cap Take 1 capsule by mouth. CALCIUM CARBONATE/VITAMIN D3 (CALCIUM 500 + D, D3, ORAL) Take by mouth. citalopram hydrobromide (CELEXA) 10 mg tablet Take 1 tablet by mouth once daily. (Patient not taking: Reported on 08/23/2022) Insulin Dundee, Disposable, (PEN NEEDLE) 32 gauge x 5/32 Inject 1 Each subcutaneously q 24 HR. Give with each insulin administration. Lancets (ONE TOUCH ULTRASOFT LANCETS) lancets Test blood sugar(s) 1 times daily. Dx:250.00, Insulin: no. No current facility-administered medications on file prior to visit. Social History Social History Tobacco Use Smoking status: Former Packs/day: 1.00 Years: 10.00 Pack years: 10.00 Types: Cigarettes Quit date: 01/16/2011 Years since quittin.6 Smokeless tobacco: Never Vaping Use Vaping Use: Never used Substance Use Topics Alcohol use: Yes Comment: social- couple times a week Drug use: No Review of Symptoms REVIEW OF SYSTEMS GENERAL: No weight loss, malaise or fevers RESPIRATORY: Negative for cough, hemoptysis, wheezing, COPD, dyspnea or shortness of breath CARDIOVASCULAR: Negative for chest pain, leg swelling, hypertension, CHF or palpitations GI: No nausea, vomiting, or diarrhea SKIN: Negative for lesions, carlos manuel (more content not included)... [facility] 06-29-2022 Note Patient Outreach (IN TMMN) DESIREE EPPERSON ([id number]) 1955 F Date Time Provider Department 06/29/22 AVRIL MURDOCK During your visit today, we recorded the following information about you: Allergies As of Date: 06/29/2022 Noted Allergy Reaction DEMEROL (MEPERIDINE (PF)) 01/26/2010 8 - GI Upset JARDIANCE (EMPAGLIFLOZIN) 11/09/2019 14 - Other: See Comments Comments: Yeast infection LISINOPRIL 08/28/2017 3 - Cough VICODIN (HYDROCODONE-ACETAMINOPHE*01/27/20 10 8 - GI Upset Date Reviewed: 06/28/2022 Reviewed by: Eusebia Dalal LPN - Fully Assessed Visit Diagnosis:Encounter for screening mammogram for breast cancer [Z12.31] Order(s):[facility] SCREENING [1440816] Order #: [id number] FUTURE Prescriptions as of 07/04/2022 - metFORMIN (GLUCOPHAGE) 1,000 mg tablet Take 1 tablet by mouth twice daily with meals. - rosuvastatin (CRESTOR) 20 mg tablet Take 1 tablet by mouth daily at bedtime. - citalopram (CELEXA) 20 mg tablet Take 1 tablet by mouth once daily. - valsartan (DIOVAN) 80 mg tablet Take 1 tablet by mouth once daily. - hydrOXYzine pamoate (VISTARIL) 25 mg capsule Take 1-2 tablets as needed three times a day for anxiety - glimepiride (AMARYL) 4 mg tablet Take 2 tablets by mouth daily with breakfast. - SITagliptin phosphate (JANUVIA) 100 mg tablet Take 1 tablet by mouth once daily. - citalopram hydrobromide (CELEXA) 10 mg tablet Take 1 tablet by mouth once daily. - hydroCHLOROthiazide 12.5 mg capsule Take 1 capsule by mouth once daily. - Insulin Dundee, Disposable, (PEN NEEDLE) 32 gauge x 5/32 Inject 1 Each subcutaneously q 24 HR. Give with each insulin administration. - vitamin L-oanszpvxazjd-kaxgldh 500 mg chew Take by mouth. - blood sugar diagnostic (BLOOD GLUCOSE TEST) test strip Test blood sugar(s) 2 times daily. Dx: Type 2 DM - Uncontrolled E11.65 Insulin: No - Blood-Glucose Meter (ONE TOUCH ULTRAMINI) monitoring kit 1 Each as needed. - Lancets (ONE TOUCH ULTRASOFT LANCETS) lancets Test blood sugar(s) 1 times daily. Dx:250.00, Insulin: no. - Kabetogama-3 Fatty Acids-Vitamin E 1,000 mg cap Take 1 capsule by mouth. - CALCIUM CARBONATE/VITAMIN D3 (CALCIUM 500 + D, D3, ORAL) Take by mouth. Problem List As Of Date 06/29/2022 Noted Resolved Depression with anxiety [F41.8] 02/16/2010 Routine gynecological examination [Z01.419] 09/17/2010 Class: Chronic Hyperlipidemia [E78.5] 09/17/2010 Obesity, Class II, BMI 35-39.9 [E66.9] 09/17/2010 Controlled type 2 diabetes mellitus without com*09/22/2014 Essential hypertension [I10] 10/23/2015 Encounter Status:Closed by [employer], [employer] on 07/04/22 [facility] 06-28-2022 Note HNO ID: [id number] Author: Rashawn Cortez APRN.SUPERVISOR [employer] Service: ? Author Type: Nurse Practitioner Type: Progress Notes Filed: 06/28/2022 2:53 PM Note Text: 06/28/2022 Patient presents with: Recheck: 1 month DM follow up SUBJECTIVE: This is a 66 year old that is here today for Above Complaints. DIABETES MELLITUS: Patient wanted to retry oral therapy and stopped the Lantus and restarted her glimepiride and januvia she had. Most recent A1c improved, however she had been taking the Lantus and had just restarted the oral meds two weeks prior. Returns today to discuss blood sugars. Takes blood sugars twice a day and vary from 100-200's. Trying to eat better. No exercise regime. Denies visual changes polyuria and polydipsia Hemoglobin A1C (%) Date Value 05/24/2022 7.6 01/26/2022 8.5 02/16/2021 9.1 06/01/2020 8.2 Citalopram increased at last appointment due to increasing anxiety. Taking and tolerating without side effects. Has not really noticed a difference in her anxiety. Is able to do some deep breathing and relax some. Denies depressive symptoms, SI, HI or insomnia PAST MEDICAL HISTORY Diagnosis Date Colon polyps Depression with anxiety Diabetes mellitus, type II (HCC) GERD (gastroesophageal reflux disease) Hyperlipidemia d/c self from zocor b/c of myalgias Hypertension Migraine Obesity (BMI 30-39.9) RAJ (obstructive sleep apnea) noncompliant with CPAP ALLERGIES Demerol [Meperidine (Pf)], Jardiance [Empagliflozin], Lisinopril, and Vicodin [Hydrocodone-Acetaminophen] MEDICATIONS Current Outpatient Medications Medication Sig glimepiride (AMARYL) 4 mg tablet Take 2 tablets by mouth daily with breakfast. SITagliptin phosphate (JANUVIA) 100 mg tablet Take 1 tablet by mouth once daily. citalopram hydrobromide (CELEXA) 10 mg tablet Take 1 tablet by mouth once daily. hydroCHLOROthiazide 12.5 mg capsule Take 1 capsule by mouth once daily. Insulin Dundee, Disposable, (PEN NEEDLE) 32 gauge x 5/32 Inject 1 Each subcutaneously q 24 HR. Give with each insulin administration. valsartan (DIOVAN) 80 mg tablet Take 1 tablet by mouth once daily. metFORMIN (GLUCOPHAGE) 1,000 mg tablet Take 1 tablet by mouth twice daily with meals. rosuvastatin (CRESTOR) 20 mg tablet Take 1 tablet by mouth daily at bedtime. citalopram (CELEXA) 20 mg tablet Take 1 tablet by mouth once daily. vitamin Z-ogwtfdpnrrax-cnuypvt 500 mg chew Take by mouth. blood sugar diagnostic (BLOOD GLUCOSE TEST) test strip Test blood sugar(s) 2 times daily. Dx: Type 2 DM - Uncontrolled E11.65 Insulin: No Blood-Glucose Meter (ONE TOUCH ULTRAMINI) monitoring kit 1 Each as needed. Lancets (ONE TOUCH ULTRASOFT LANCETS) lancets Test blood sugar(s) 1 times daily. Dx:250.00, Insulin: no. Kabetogama-3 Fatty Acids-Vitamin E 1,000 mg cap Take 1 capsule by mouth. CALCIUM CARBONATE/VITAMIN D3 (CALCIUM 500 + D, D3, ORAL) Take by mouth. No current facility-administered medications for this visit. Medications and allergies reviewed by this provider. SOCIAL HISTORY Social History Tobacco Use Smoking status: Former Packs/day: 1.00 Years: 10.00 Pack years: 10.00 Types: Cigarettes Quit date: 01/16/2011 Years since quittin.4 Smokeless tobacco: Never Vaping Use Vaping Use: Never used Substance Use Topics Alcohol use: Yes Comment: social- couple times a week Drug use: No REVIEW OF SYSTEMS All other reviewed and negative other than HPI. OBJECTIVE: BP 142/80 Pulse 93 Resp 16 Wt 92.4 kg (203 lb 12.8 oz) SpO2 94% BMI 36.98 kg/m? . Vital signs reviewed by this provider. APPEARANCE Well appearing, alert, in no acute distress, well-hydrated, well nourished. EYES conjunctiva and sclera normal. COVID-19 VACCINE(3 - Booster for Kj series) due on 04/26/2021 MAMMOGRAM due on 06/04/2021 LDL CHOLESTEROL due on 02/16/2022 BP CONTROLLED (<130/80) due on 02/16/2022 PNEUMOCOCCAL: 65+(2 - PCV) due on 02/16/2022 ADVANCE DIRECTIVE DISCUSSION Never done SHINGRIX VACCINE(1 of 2) due on 05/25/2023 INFLUENZA(Season Ended) due on 11/11/2022 HBA1C due on 11/24/2022 COLORECTAL CANCER SCREENING due on 12/04/2022 DILATED RETINAL EXAM due on 12/13/2022 DTAP,TDAP,TD(2 - Td or Tdap) due on 01/21/2023 URINE ALBUMIN:CREATININE RATIO due on 05/25/2023 DIABETIC FOOT EXAM due on 05/25/2023 ANNUAL PCP TEAM CHRONIC DISEASE VISIT due on 05/25/2023 BONE DENSITY Completed HEPATITIS C SCREENING Completed ASSESSMENT/PLAN: 1. Type 2 diabetes mellitus without complication, without long-term current use of insulin (HCC) - ICD9: 250.00, ICD10: E11.9 (primary diagnosis) - Barriers to control: lack of exercise - Continue current medications - Blood glucose monitoring on a twice daily schedule - Counseled on healthy diet and regular exercise - Discussed need for and benefit of weight loss. BMI 36.98 kg/(m2) - Discussed diabetic education issues of diabetes complications and monitoring re (more content not included)... [facility] 06-13-2022 Miscellaneous Notes Patient notified and verbalized understanding. Vera Van MA TC to patient with no answer. Unable to leave VM as box is full. Please try again later. TOM Baig Please let patient know bone density testing is normal. Continue over the counter calcium and vitamin D supplement. Rashawn Cortez APRN.BENSON documented in this encounter [facility] 06-07-2022 Note HNO ID: [id number] Author: RT Adam(R) Service: ? Author Type: Technologist Type: Progress Notes Filed: 06/07/2022 10:51 AM Note Text: Radiology Service Progress Note PATIENT NAME: Desiree Epperson DATE OF SERVICE: June 07, 2022 TIME: 10:42 AM PATIENT IDENTITY VERIFICATION COMPLETED USING TWO (2) IDENTIFIERS: Name and Date of confirmed by patient verbally. FALL SCREENING: Has the patient had 2 falls in the last year or 1 fall with injury or currently using an Ambulatory Assistive Device (Walker, Cane, Wheelchair, Crutches, etc.)? No PATIENT GENDER DATA: Female. status: : No status: NO. PATIENT RELEVANT IMPLANT DATA REVIEWED: Not Applicable RADIOLOGY DEPARTMENT: Bone Density PERIPHERAL IV DATA: Not applicable SIGNED BY: RT Adam(R) June 07, 2022 10:42 AM [facility] 06-07-2022 History of Present illness Narrative Radiology Service Progress Note PATIENT NAME: Desiree Epperson DATE OF SERVICE: June 07, 2022 TIME: 10:42 AM PATIENT IDENTITY VERIFICATION COMPLETED USING TWO (2) IDENTIFIERS: Name and Date of confirmed by patient verbally. FALL SCREENING: Has the patient had 2 falls in the last year or 1 fall with injury or currently using an Ambulatory Assistive Device (Walker, Cane, Wheelchair, Crutches, etc.)? No PATIENT GENDER DATA: Female. status: : No status: NO. PATIENT RELEVANT IMPLANT DATA REVIEWED: Not Applicable RADIOLOGY DEPARTMENT: Bone Density PERIPHERAL IV DATA: Not applicable SIGNED BY: RT Adam(R) June 07, 2022 10:42 AM documented in this encounter [facility] 05-25-2022 Miscellaneous Notes Patient notified of message below. Voices understanding. Eusebia Dalal LPN 30 day supply of oral meds sent. Tell her to check blood sugars twice a day and bring readings with her to appointment next month. Rashawn Cortez APRN.SUPER[employer] Patient notified of recommendations, verbalizes understanding of instructions. Pt would like to give the oral meds a longer time. Has an appt in 1 month for follow up. Yareli Boston LPN Please call patient and let her know her A1c has improved from 8.5% to 7.6%, however I do not think the two weeks of the oral medications improved this that much. I do think the insulin helped lower it. I recommend we continue with the insulin an titrate it by two units every three days until her fasting blood sugar is 150 or less. Rashawn Cortez APRN.CNP documented in this encounter [facility] 05-24-2022 Note HNO ID: [id number] Author: Rashawn Cortez APRN.CNP Service: ? Author Type: Nurse Practitioner Type: Progress Notes Filed: 05/24/2022 2:35 PM Note Text: 05/24/2022 Patient presents with: F/U 3 Month SUBJECTIVE: This is a 66 year old that is here today for Above Complaints. Since last office appointment has been in good health without ER visits or hospitalizations. DIABETES MELLITUS: Since our last visit she denies excessive thirst or increased frequency of urination, chest pain or dyspnea , numbness, tingling or pain in extremities, new or unusual visual symptoms, low sugar/hypoglycemic reactions, weight loss/gain, lightheadedness/dizziness, and bowel changes/loose stools. Follows a diabetic diet most of the time. Reports she ran out of her insulin about 2 weeks ago. Is taking her metformin. Started taking her glimepiride and januvia she had left over. Reports blood sugars are better than when she was taking the insulin- patient recalls three recent blood sugars of 92, 118, 179. Reports she is working on dietary changes. She reports checking her glucose on a once a day schedule . Patient's last HgA1C was Hemoglobin A1C (%) Date Value 01/26/2022 8.5 10/05/2021 8.1 02/16/2021 9.1 06/01/2020 8.2 ) Last Ophthalmology exam was within the past 12 months HTN: Patient is compliant with meds Yes Monitors bp at home: No. Denies side effects: Yes. Chest pain: No. Dyspnea: No. Edema: No. Palpitations: No. Syncope: No. Headache: No. Dizziness: No. HYPERLIPIDEMIA: Patient is taking medications: No. Patient is watching diet: No. Patient denies myalgias: No. Patient denies gi upset: No Anxiety: reports has been having anxiety attacks. Overwhelmed by work. Taking citalopram as prescribed. Denies depressive symptoms. Does not attend counseling ELLY: 9 PAST MEDICAL HISTORY Diagnosis Date Colon polyps Depression with anxiety Diabetes mellitus, type II (HCC) GERD (gastroesophageal reflux disease) Hyperlipidemia d/c self from zocor b/c of myalgias Hypertension Migraine Obesity (BMI 30-39.9) RAJ (obstructive sleep apnea) noncompliant with CPAP ALLERGIES Demerol [Meperidine (Pf)], Jardiance [Empagliflozin], Lisinopril, and Vicodin [Hydrocodone-Acetaminophen] MEDICATIONS Current Outpatient Medications Medication Sig Insulin Dundee, Disposable, (PEN NEEDLE) 32 gauge x 5/32 Inject 1 Each subcutaneously q 24 HR. Give with each insulin administration. LANTUS SOLOSTAR U-100 INSULIN 100 unit/mL (3 mL) Inject 28 Units subcutaneously daily at bedtime. valsartan (DIOVAN) 80 mg tablet Take 1 tablet by mouth once daily. metFORMIN (GLUCOPHAGE) 1,000 mg tablet Take 1 tablet by mouth twice daily with meals. rosuvastatin (CRESTOR) 20 mg tablet Take 1 tablet by mouth daily at bedtime. citalopram (CELEXA) 20 mg tablet Take 1 tablet by mouth once daily. hydroCHLOROthiazide (HYDRODIURIL, ESIDRIX) 12.5 mg capsule Take 1 capsule by mouth once daily. vitamin O-wosszovjmwhi-gmdggrl 500 mg chew Take by mouth. blood sugar diagnostic (BLOOD GLUCOSE TEST) test strip Test blood sugar(s) 2 times daily. Dx: Type 2 DM - Uncontrolled E11.65 Insulin: No Blood-Glucose Meter (ONE TOUCH ULTRAMINI) monitoring kit 1 Each as needed. Lancets (ONE TOUCH ULTRASOFT LANCETS) lancets Test blood sugar(s) 1 times daily. Dx:250.00, Insulin: no. Kabetogama-3 Fatty Acids-Vitamin E 1,000 mg cap Take 1 capsule by mouth. CALCIUM CARBONATE/VITAMIN D3 (CALCIUM 500 + D, D3, ORAL) Take by mouth. No current facility-administered medications for this visit. Medications and allergies reviewed by this provider. SOCIAL HISTORY Social History Tobacco Use Smoking status: Former Packs/day: 1.00 Years: 10.00 Pack years: 10.00 Types: Cigarettes Quit date: 01/16/2011 Years since quittin.3 Smokeless tobacco: Never Vaping Use Vaping Use: Never used Substance Use Topics Alcohol use: Yes Comment: social- couple times a week Drug use: No REVIEW OF SYSTEMS All other reviewed and negative other than HPI. OBJECTIVE: BP 132/78 Pulse 88 Resp 18 Wt 93.4 kg (205 lb 12.8 oz) SpO2 95% BMI 37.34 kg/m? . Vital signs reviewed by this provider. APPEARANCE Well appearing, alert, in no acute distress, well-hydrated, well nourished. EYES conjunctiva and sclera normal. HEART RRR with normal S1 and S2, no murmurs, no gallops, no JVD appreciated LUNG clear to auscultation. No wheezes, rhonchi or rales EXTREMITIES Extremities normal, No deformities, No skin discoloration, No edema, and Normal pulses bilaterally. SKIN Skin color, texture, turgor normal, no suspicious rashes or lesions Feet: Shoes and socks removed, No deformities, ulcers, calluses, normal distal pulses, and sensitive to 10 gm monofilament BONE DENSITY Never done COVID-19 VACCINE(3 - Booster for Kj series) due on 04/26/2021 MAMMOGRAM due on 06/04/2021 URINE ALBUMIN:CREATININE RATIO due on (more content not included)... [facility] 05-24-2022 Instructions Rashawn Cortez APRN.[facility] - 05/24/2022 12:27 PM EDT BONE MINERAL DENSITY PATIENT INSTRUCTIONS ======= Bone mineral density testing measures the amount of calcium in certain parts of your bones. This information determines how strong your bones are. The test is used to detect osteoporosis, a disease in which the bone's mineral content and density are low, increasing a person's risk of fractures. The lumbar spine (lower back) and the hip are the skeletal sites usually examined. For the test, remember that: 1. You cannot take this test if you are . 2. Eat a normal diet on the day of the test. 3. Take your medications as you normally would. 4. DO NOT take calcium supplements (such as Tums) for 24 hours before the test. 5. On the day of the test, leave valuables (jewelry or credit cards) at home. 6. The test should be performed prior to oral, rectal or IV contrast studies, or at least 7 days after any of these studies. For the test, you may be asked to wear a hospital gown. You will lie on your back, on a padded table, in a comfortable position. Generally, you can resume your usual activities immediately. documented in this encounter [facility] 05-24-2022 History of Present illness Narrative 05/24/2022 Patient presents with: F/U 3 Month SUBJECTIVE: This is a 66 year old that is here today for Above Complaints. Since last office appointment has been in good health without ER visits or hospitalizations. DIABETES MELLITUS: Since our last visit she denies excessive thirst or increased frequency of urination, chest pain or dyspnea , numbness, tingling or pain in extremities, new or unusual visual symptoms, low sugar/hypoglycemic reactions, weight loss/gain, lightheadedness/dizziness, and bowel changes/loose stools. Follows a diabetic diet most of the time. Reports she ran out of her insulin about 2 weeks ago. Is taking her metformin. Started taking her glimepiride and januvia she had left over. Reports blood sugars are better than when she was taking the insulin- patient recalls three recent blood sugars of 92, 118, 179. Reports she is working on dietary changes. She reports checking her glucose on a once a day schedule . Patient's last HgA1C was Hemoglobin A1C (%) Date Value 01/26/2022 8.5 10/05/2021 8.1 02/16/2021 9.1 06/01/2020 8.2 ) Last Ophthalmology exam was within the past 12 months HTN: Patient is compliant with meds Yes Monitors bp at home: No. Denies side effects: Yes. Chest pain: No. Dyspnea: No. Edema: No. Palpitations: No. Syncope: No. Headache: No. Dizziness: No. HYPERLIPIDEMIA: Patient is taking medications: No. Patient is watching diet: No. Patient denies myalgias: No. Patient denies gi upset: No Anxiety: reports has been having anxiety attacks. Overwhelmed by work. Taking citalopram as prescribed. Denies depressive symptoms. Does not attend counseling ELLY: 9 PAST MEDICAL HISTORY Diagnosis Date Colon polyps Depression with anxiety Diabetes mellitus, type II (HCC) GERD (gastroesophageal reflux disease) Hyperlipidemia d/c self from zocor b/c of myalgias Hypertension Migraine Obesity (BMI 30-39.9) RAJ (obstructive sleep apnea) noncompliant with CPAP ALLERGIES Demerol [Meperidine (Pf)], Jardiance [Empagliflozin], Lisinopril, and Vicodin [Hydrocodone-Acetaminophen] MEDICATIONS Current Outpatient Medications Medication Sig Insulin Dundee, Disposable, (PEN NEEDLE) 32 gauge x 5/32 Inject 1 Each subcutaneously q 24 HR. Give with each insulin administration. LANTUS SOLOSTAR U-100 INSULIN 100 unit/mL (3 mL) Inject 28 Units subcutaneously daily at bedtime. valsartan (DIOVAN) 80 mg tablet Take 1 tablet by mouth once daily. metFORMIN (GLUCOPHAGE) 1,000 mg tablet Take 1 tablet by mouth twice daily with meals. rosuvastatin (CRESTOR) 20 mg tablet Take 1 tablet by mouth daily at bedtime. citalopram (CELEXA) 20 mg tablet Take 1 tablet by mouth once daily. hydroCHLOROthiazide (HYDRODIURIL, ESIDRIX) 12.5 mg capsule Take 1 capsule by mouth once daily. vitamin P-lonswprckdcr-mwcandl 500 mg chew Take by mouth. blood sugar diagnostic (BLOOD GLUCOSE TEST) test strip Test blood sugar(s) 2 times daily. Dx: Type 2 DM - Uncontrolled E11.65 Insulin: No Blood-Glucose Meter (ONE TOUCH ULTRAMINI) monitoring kit 1 Each as needed. Lancets (ONE TOUCH ULTRASOFT LANCETS) lancets Test blood sugar(s) 1 times daily. Dx:250.00, Insulin: no. Kabetogama-3 Fatty Acids-Vitamin E 1,000 mg cap Take 1 capsule by mouth. CALCIUM CARBONATE/VITAMIN D3 (CALCIUM 500 + D, D3, ORAL) Take by mouth. No current facility-administered medications for this visit. Medications and allergies reviewed by this provider. SOCIAL HISTORY Social History Tobacco Use Smoking status: Former Packs/day: 1.00 Years: 10.00 Pack years: 10.00 Types: Cigarettes Quit date: 01/16/2011 Years since quittin.3 Smokeless tobacco: Never Vaping Use Vaping Use: Never used Substance Use Topics Alcohol use: Yes Comment: social- couple times a week Drug use: No REVIEW OF SYSTEMS All other reviewed and negative other than HPI. OBJECTIVE: BP 132/78 Pulse 88 Resp 18 Wt 93.4 kg (205 lb 12.8 oz) SpO2 95% BMI 37.34 kg/m . Vital signs reviewed by this provider. APPEARANCE Well appearing, alert, in no acute distress, well-hydrated, well nourished. EYES conjunctiva and sclera normal. HEART RRR with normal S1 and S2, no murmurs, no gallops, no JVD appreciated LUNG clear to auscultation. No wheezes, rhonchi or rales EXTREMITIES Extremities normal, No deformities, No skin discoloration, No edema, and Normal pulses bilaterally. SKIN Skin color, texture, turgor normal, no suspicious rashes or lesions Feet: Shoes and socks removed, No deformities, ulcers, calluses, normal distal pulses, and sensitive to 10 gm monofilament BONE DENSITY Never done COVID-19 VACCINE(3 - Booster for Kj series) due on 04/26/2021 MAMMOGRAM due on 06/04/2021 URINE ALBUMIN:CREATININE RATIO due on 02/16/2022 LDL CHOLESTEROL due on 02/16/2022 BP CONTROLLED (<130/80) due on 02/16/2022 PNEUMOCOCCAL: 65+(2 - PCV) due on 02/16/2022 ADVANCE DIRECTIVE DISCUSSION Never done HBA1C due on 04/28/2022 INFLUENZA(1) due on 09/09/2022 SHINGRIX VACCINE(1 of 2) due on 05/25/2023 COLORECTAL CANCER SCREENING due on 12/04/2022 DILATED RETINAL EXAM due on 12/13/2022 DTAP,TDAP,TD(2 - Td or Tdap) due on 01/21/2023 DIABETIC FOOT EXAM due on 05/25/2023 ANNUAL PCP TEAM CHRONIC DISEASE VISIT due on 05/25/2023 HEPATITIS C SCREENING Completed ASSESSMENT/PLAN: 1. Type 2 diabetes mellitus without complication, without long-term current use of insulin (HCC) - ICD9: 250.00, ICD10: E11.9 (primary diagnosis) - control to be determined - discussed with patient she can continue Amaryl and glimepiride at this time- needs to get A1c checked today. Will discuss results with Dr. Murdock - ALBUMIN/CREAT RATIO RND UR - HGB A1C - COMP METABOLIC PANEL - check blood sugar twice a day - follow-up pending blood work 2. Essential hypertension - ICD9: 401.9, ICD10: I10 - good control - Continue current medication(s) - Encouraged dietary sodium restriction/DASH diet - Recommended regular aerobic exercise. - Recommend home blood pressure monitoring, to bring results in on next visit - Discussed need and benefit for weight loss. - Recheck in 3 months, sooner should new symptoms or problems arise. - Goal of BP <130/80 - Recommended no refined sugar, low refined starch, healthy oil intake (olive oil), healthy protein (fish) along the lines of the Mediterranean diet. - HYDROCHLOROTHIAZIDE 12.5 MG CAPSULE 3. Screening for osteoporosis - ICD9: V82.81, ICD10: Z13.820 - DXA-AXIAL SKELETON 4. Obesity, Class II, BMI 35-39.9 - ICD9: 278.00, ICD10: E66.9 Weight decreasing - Behavioral intervention - Lengthy discussion in office today regarding diet and exercise. Discussed use of small plate to eat meals from, drink 1 glass of water 10-15 minutes prior to eating meal, drink 8 glasses of water daily, eat fresh fruit and vegetable during meal first then lean protein such as grilled/baked chicken breast or fish, limit carbohydrate intake (less pasta, breads, rice and snack foods) as well as limiting sugars (desserts etc). Important to count / track your calories and exercise as well. 5. Mixed hyperlipidemia - ICD9: 272.2, ICD10: E78.2 - suboptimal control - Continue current medication. - Encouraged following a low fat, low cholesterol diet. - Discussed the benefits of regular aerobic exercise and weight loss. - Follow up in 12 weeks- recheck at that time. - Encouraged following a low carbohydrate, healthy oil intake diet. 6. ELLY (generalized anxiety disorder) - ICD9: 300.02, ICD10: F41.1 - counseling encouraged - will increase citalopram - CITALOPRAM 10 MG TABLET - follow-up if symptoms fail to improve Rashawn Dodgelogpiedad, PIPE LINE GAUGER.SUPERVISOR [employer] Prescription instructions reviewed with patient as applicable. Patient advised if symptoms do not improve or if symptoms worsen sooner, to contact their primary care physician. Potential red flag symptoms discussed with the patient. Reviewed appropriate action plan to take if red flag symptoms occur. Patient agreeable to treatment plan. I spent a total of 30 minutes on the date of the service which included preparing to see the patient, [id number] patient care, completing clinical documentation, obtaining and/or reviewing separately obtained history, performing a medically appropriate examination, counseling and educating the patient/family/caregiver, and ordering medications, tests, or procedures. documented in this encounter [facility] 03-17-2022 Miscellaneous Notes Scheduled for routine F/U 05/24. Sandy Acosta MA Due for follow-up end of April, please assist in scheduling. Rashawn Cortez APRN.CNP Patient phones requesting refills as follows: Requested Prescriptions Pending Prescriptions Disp Refills LANTUS SOLOSTAR U-100 INSULIN 100 unit/mL (3 mL) 5 Each 1 Sig: Inject 28 Units subcutaneously daily at bedtime. FERNANDO-02/01/22 Labs-01/26/22 NOV-none Please review and advise. Yareli Boston LPN documented in this encounter [facility] 02-01-2022 Note HNO ID: [id number] Author: Rashawn Cortez APRN.CNP Service: ? Author Type: Nurse Practitioner Type: Progress Notes Filed: 02/01/2022 10:40 AM Note Text: 02/01/2022 Patient presents with: Results: A1C SUBJECTIVE: This is a 66 year old that is here today for Above Complaints. DIABETES MELLITUS: Ms. Epperson was last seen on 11/16/2021. Since our last visit she denies excessive thirst or increased frequency of urination, chest pain or dyspnea , numbness, tingling or pain in extremities, new or unusual visual symptoms, low sugar/hypoglycemic reactions, weight loss/gain, and lightheadedness/dizziness. Follows a diabetic diet most of the time. She is compliant with medication(s) and is tolerating med(s) without any side effects. She reports checking her glucose on a three times a day schedule with the majority being in the 200 range. Patient's last HgA1C was Hemoglobin A1C (%) Date Value 01/26/2022 8.5 10/05/2021 8.1 02/16/2021 9.1 06/01/2020 8.2 ) Patient is trying to change diet. Has stopped drinking pop and no snacking. Weight down 9# since November visit. PAST MEDICAL HISTORY Diagnosis Date Colon polyps Depression with anxiety Diabetes mellitus, type II (HCC) GERD (gastroesophageal reflux disease) Hyperlipidemia d/c self from zocor b/c of myalgias Hypertension Migraine Obesity (BMI 30-39.9) RAJ (obstructive sleep apnea) noncompliant with CPAP ALLERGIES Demerol [Meperidine (Pf)], Jardiance [Empagliflozin], Lisinopril, and Vicodin [Hydrocodone-Acetaminophen] MEDICATIONS Current Outpatient Medications Medication Sig valsartan (DIOVAN) 80 mg tablet Take 1 tablet by mouth once daily. LANTUS SOLOSTAR U-100 INSULIN 100 unit/mL (3 mL) Inject 28 Units subcutaneously daily at bedtime. metFORMIN (GLUCOPHAGE) 1,000 mg tablet Take 1 tablet by mouth twice daily with meals. rosuvastatin (CRESTOR) 20 mg tablet Take 1 tablet by mouth daily at bedtime. citalopram (CELEXA) 20 mg tablet Take 1 tablet by mouth once daily. Insulin [place], Disposable, (PEN NEEDLE) 32 gauge x 5/32 Inject 1 Each subcutaneously q 24 HR. Give with each insulin administration. hydroCHLOROthiazide (HYDRODIURIL, ESIDRIX) 12.5 mg capsule Take 1 capsule by mouth once daily. vitamin G-oqlirtivkysa-hfqzmkl 500 mg chew Take by mouth. blood sugar diagnostic (BLOOD GLUCOSE TEST) test strip Test blood sugar(s) 2 times daily. Dx: Type 2 DM - Uncontrolled E11.65 Insulin: No Blood-Glucose Meter (ONE TOUCH ULTRAMINI) monitoring kit 1 Each as needed. Lancets (ONE TOUCH ULTRASOFT LANCETS) lancets Test blood sugar(s) 1 times daily. Dx:250.00, Insulin: no. Kabetogama-3 Fatty Acids-Vitamin E 1,000 mg cap Take 1 capsule by mouth. CALCIUM CARBONATE/VITAMIN D3 (CALCIUM 500 + D, D3, ORAL) Take by mouth. No current facility-administered medications for this visit. Medications and allergies reviewed by this provider. SOCIAL HISTORY Social History Tobacco Use Smoking status: Former Packs/day: 1.00 Years: 10.00 Pack years: 10.00 Types: Cigarettes Quit date: 01/16/2011 Years since quittin.0 Smokeless tobacco: Never Vaping Use Vaping Use: Never used Substance Use Topics Alcohol use: Yes Comment: social- couple times a week Drug use: No REVIEW OF SYSTEMS All other reviewed and negative other than HPI. OBJECTIVE: BP 132/84 Pulse 80 Resp 16 Wt 92.1 kg (203 lb) SpO2 95% BMI 36.83 kg/m? . Vital signs reviewed by this provider. APPEARANCE Well appearing, alert, in no acute distress, well-hydrated, well nourished. SHINGRIX VACCINE(1 of 2) Never done BONE DENSITY Never done ADVANCE DIRECTIVE DISCUSSION Never done COVID-19 VACCINE(3 - Booster for Kj series) due on 04/26/2021 MAMMOGRAM due on 06/04/2021 INFLUENZA(1) due on 11/11/2021 URINE ALBUMIN:CREATININE RATIO due on 02/16/2022 LDL CHOLESTEROL due on 02/16/2022 DIABETIC FOOT EXAM due on 02/16/2022 PNEUMOCOCCAL: 65+(2 - PCV) due on 02/16/2022 BP CONTROLLED (<130/80) due on 02/16/2022 HBA1C due on 04/28/2022 ANNUAL PCP TEAM CHRONIC DISEASE VISIT due on 11/16/2022 COLORECTAL CANCER SCREENING due on 12/04/2022 DILATED RETINAL EXAM due on 12/13/2022 DTAP,TDAP,TD(2 - Td or Tdap) due on 01/21/2023 HEPATITIS C SCREENING Completed ASSESSMENT/PLAN: 1. Type 2 diabetes mellitus without complication, without long-term current use of insulin (HCC) - ICD9: 250.00, ICD10: E11.9 uncontrolled - Increase Lantus 2 units every three days until fasting blood sugar reading 150 or less. Update me in 2 weeks with blood sugar reading via my chart - Blood glucose monitoring on a 2-3 times schedule - Encouraged regular aerobic exercise and weight loss - Discussed diabetic education issues of diet and importance of exercise with patient. - BP goal of <130/80 - LDL goal of <100 - check with insurance to see if they cover the pawel or dexcom CGM system Rashawn Cortez APRN.[employer] Prescription instructions (more content not included)... [facility] 02-01-2022 History of Present illness Narrative 02/01/2022 Patient presents with: Results: A1C SUBJECTIVE: This is a 66 year old that is here today for Above Complaints. DIABETES MELLITUS: Ms. Epperson was last seen on 11/16/2021. Since our last visit she denies excessive thirst or increased frequency of urination, chest pain or dyspnea , numbness, tingling or pain in extremities, new or unusual visual symptoms, low sugar/hypoglycemic reactions, weight loss/gain, and lightheadedness/dizziness. Follows a diabetic diet most of the time. She is compliant with medication(s) and is tolerating med(s) without any side effects. She reports checking her glucose on a three times a day schedule with the majority being in the 200 range. Patient's last HgA1C was Hemoglobin A1C (%) Date Value 01/26/2022 8.5 10/05/2021 8.1 02/16/2021 9.1 06/01/2020 8.2 ) Patient is trying to change diet. Has stopped drinking pop and no snacking. Weight down 9# since November visit. PAST MEDICAL HISTORY Diagnosis Date Colon polyps Depression with anxiety Diabetes mellitus, type II (HCC) GERD (gastroesophageal reflux disease) Hyperlipidemia d/c self from zocor b/c of myalgias Hypertension Migraine Obesity (BMI 30-39.9) RAJ (obstructive sleep apnea) noncompliant with CPAP ALLERGIES Demerol [Meperidine (Pf)], Jardiance [Empagliflozin], Lisinopril, and Vicodin [Hydrocodone-Acetaminophen] MEDICATIONS Current Outpatient Medications Medication Sig valsartan (DIOVAN) 80 mg tablet Take 1 tablet by mouth once daily. LANTUS SOLOSTAR U-100 INSULIN 100 unit/mL (3 mL) Inject 28 Units subcutaneously daily at bedtime. metFORMIN (GLUCOPHAGE) 1,000 mg tablet Take 1 tablet by mouth twice daily with meals. rosuvastatin (CRESTOR) 20 mg tablet Take 1 tablet by mouth daily at bedtime. citalopram (CELEXA) 20 mg tablet Take 1 tablet by mouth once daily. Insulin Dundee, Disposable, (PEN NEEDLE) 32 gauge x 5/32 Inject 1 Each subcutaneously q 24 HR. Give with each insulin administration. hydroCHLOROthiazide (HYDRODIURIL, ESIDRIX) 12.5 mg capsule Take 1 capsule by mouth once daily. vitamin U-bghihzrbwnxs-jkcokri 500 mg chew Take by mouth. blood sugar diagnostic (BLOOD GLUCOSE TEST) test strip Test blood sugar(s) 2 times daily. Dx: Type 2 DM - Uncontrolled E11.65 Insulin: No Blood-Glucose Meter (ONE TOUCH ULTRAMINI) monitoring kit 1 Each as needed. Lancets (ONE TOUCH ULTRASOFT LANCETS) lancets Test blood sugar(s) 1 times daily. Dx:250.00, Insulin: no. Kabetogama-3 Fatty Acids-Vitamin E 1,000 mg cap Take 1 capsule by mouth. CALCIUM CARBONATE/VITAMIN D3 (CALCIUM 500 + D, D3, ORAL) Take by mouth. No current facility-administered medications for this visit. Medications and allergies reviewed by this provider. SOCIAL HISTORY Social History Tobacco Use Smoking status: Former Packs/day: 1.00 Years: 10.00 Pack years: 10.00 Types: Cigarettes Quit date: 01/16/2011 Years since quittin.0 Smokeless tobacco: Never Vaping Use Vaping Use: Never used Substance Use Topics Alcohol use: Yes Comment: social- couple times a week Drug use: No REVIEW OF SYSTEMS All other reviewed and negative other than HPI. OBJECTIVE: BP 132/84 Pulse 80 Resp 16 Wt 92.1 kg (203 lb) SpO2 95% BMI 36.83 kg/m . Vital signs reviewed by this provider. APPEARANCE Well appearing, alert, in no acute distress, well-hydrated, well nourished. SHINGRIX VACCINE(1 of 2) Never done BONE DENSITY Never done ADVANCE DIRECTIVE DISCUSSION Never done COVID-19 VACCINE(3 - Booster for Kj series) due on 04/26/2021 MAMMOGRAM due on 06/04/2021 INFLUENZA(1) due on 11/11/2021 URINE ALBUMIN:CREATININE RATIO due on 02/16/2022 LDL CHOLESTEROL due on 02/16/2022 DIABETIC FOOT EXAM due on 02/16/2022 PNEUMOCOCCAL: 65+(2 - PCV) due on 02/16/2022 BP CONTROLLED (<130/80) due on 02/16/2022 HBA1C due on 04/28/2022 ANNUAL PCP TEAM CHRONIC DISEASE VISIT due on 11/16/2022 COLORECTAL CANCER SCREENING due on 12/04/2022 DILATED RETINAL EXAM due on 12/13/2022 DTAP,TDAP,TD(2 - Td or Tdap) due on 01/21/2023 HEPATITIS C SCREENING Completed ASSESSMENT/PLAN: 1. Type 2 diabetes mellitus without complication, without long-term current use of insulin (HCC) - ICD9: 250.00, ICD10: E11.9 uncontrolled - Increase Lantus 2 units every three days until fasting blood sugar reading 150 or less. Update me in 2 weeks with blood sugar reading via my chart - Blood glucose monitoring on a 2-3 times schedule - Encouraged regular aerobic exercise and weight loss - Discussed diabetic education issues of diet and importance of exercise with patient. - BP goal of <130/80 - LDL goal of <100 - check with insurance to see if they cover the [employer] or [employer] CGM system Rashawn Cortez APRN.CNP Prescription instructions reviewed with patient as applicable. Patient advised if symptoms do not improve or if symptoms worsen sooner, to contact their primary care physician. Potential red flag symptoms discussed with the patient. Reviewed appropriate action plan to take if red flag symptoms occur. Patient agreeable to treatment plan. I spent a total of 25 minutes on the date of the service which included preparing to see the patient, [id number] patient care, completing clinical documentation, obtaining and/or reviewing separately obtained history, performing a medically appropriate examination, counseling and educating the patient/family/caregiver, and ordering medications, tests, or procedures. documented in this encounter [facility] 12-29-2021 Miscellaneous Notes Patient phones requesting refills as follows: Requested Prescriptions Pending Prescriptions Disp Refills valsartan (DIOVAN) 80 mg tablet 90 tablet 0 Sig: Take 1 tablet by mouth once daily. FERNANDO 11/16/21 No upcoming appointment scheduled. Please review and advise. Eusebia Dalal LPN documented in this encounter [facility] 11-19-2021 Miscellaneous Notes Patient phones requesting refills as follows: Requested Prescriptions Pending Prescriptions Disp Refills rosuvastatin (CRESTOR) 20 mg tablet 30 tablet 1 Sig: Take 1 tablet by mouth daily at bedtime. FERNANDO-11/16/21 Labs-10/05/21 NOV-none med filled 09/14/21 Please review and advise. Yareli Boston LPN documented in this encounter [facility] 11-16-2021 History of Present illness Narrative 11/16/2021 Patient presents with: Follow Up: 4 week DM follow up; started insulin SUBJECTIVE: This is a 65 year old that is here today for Above Complaints. Diabetes: started on long acting insulin about one month ago. Checking blood sugar in AM and sometimes another. She reports blood sugars are increasing instead of going down. Lowest 209 and highest 324 with average being about 250. Denies low blood sugars. Thinks maybe peeing a little more. Denies visual changes or polydipsia. PAST MEDICAL HISTORY Diagnosis Date Colon polyps Depression with anxiety Diabetes mellitus, type II (HCC) GERD (gastroesophageal reflux disease) Hyperlipidemia d/c self from zocor b/c of myalgias Hypertension Migraine Obesity (BMI 30-39.9) RAJ (obstructive sleep apnea) noncompliant with CPAP ALLERGIES Demerol [Meperidine (Pf)], Jardiance [Empagliflozin], Lisinopril, and Vicodin [Hydrocodone-Acetaminophen] MEDICATIONS Current Outpatient Medications Medication Sig LANTUS SOLOSTAR U-100 INSULIN 100 unit/mL (3 mL) Inject 20 Units subcutaneously daily at bedtime. Insulin Dundee, Disposable, (PEN NEEDLE) 32 gauge x 5/32 Inject 1 Each subcutaneously q 24 HR. Give with each insulin administration. citalopram (CELEXA) 20 mg tablet Take 1 tablet by mouth once daily. rosuvastatin (CRESTOR) 20 mg tablet Take 1 tablet by mouth daily at bedtime. valsartan (DIOVAN) 80 mg tablet Take 1 tablet by mouth once daily. hydroCHLOROthiazide (HYDRODIURIL, ESIDRIX) 12.5 mg capsule Take 1 capsule by mouth once daily. metFORMIN (GLUCOPHAGE) 1,000 mg tablet Take 1 tablet by mouth twice daily with meals. vitamin C-vsgxzhokgmyg-msxmhkq 500 mg chew Take by mouth. blood sugar diagnostic (BLOOD GLUCOSE TEST) test strip Test blood sugar(s) 2 times daily. Dx: Type 2 DM - Uncontrolled E11.65 Insulin: No Blood-Glucose Meter (ONE TOUCH ULTRAMINI) monitoring kit 1 Each as needed. Lancets (ONE TOUCH ULTRASOFT LANCETS) lancets Test blood sugar(s) 1 times daily. Dx:250.00, Insulin: no. Kabetogama-3 Fatty Acids-Vitamin E 1,000 mg cap Take 1 capsule by mouth. CALCIUM CARBONATE/VITAMIN D3 (CALCIUM 500 + D, D3, ORAL) Take by mouth. No current facility-administered medications for this visit. Medications and allergies reviewed by this provider. SOCIAL HISTORY Social History Tobacco Use Smoking status: Former Packs/day: 1.00 Years: 10.00 Pack years: 10.00 Types: Cigarettes Quit date: 01/16/2011 Years since quittin.8 Smokeless tobacco: Never Vaping Use Vaping Use: Never used Substance Use Topics Alcohol use: Yes Comment: social- couple times a week Drug use: No REVIEW OF SYSTEMS All other reviewed and negative other than HPI. OBJECTIVE: BP 122/84 Pulse 83 Resp 18 Wt 96.5 kg (212 lb 12.8 oz) SpO2 96% BMI 38.61 kg/m . Vital signs reviewed by this provider. APPEARANCE Well appearing, alert, in no acute distress, well-hydrated, well nourished. SHINGRIX VACCINE(1 of 2) Never done BONE DENSITY Never done ADVANCE DIRECTIVE DISCUSSION Never done MAMMOGRAM due on 06/04/2021 DILATED RETINAL EXAM due on 06/08/2021 COVID-19 VACCINE(3 - Booster for Kj series) due on 06/30/2021 INFLUENZA(1) due on 11/11/2021 HBA1C due on 01/05/2022 URINE ALBUMIN:CREATININE RATIO due on 02/16/2022 LDL CHOLESTEROL due on 02/16/2022 DIABETIC FOOT EXAM due on 02/16/2022 BP CONTROLLED (<130/80) due on 02/16/2022 PNEUMOCOCCAL: 65+(2 - PCV) due on 02/16/2022 ANNUAL PCP TEAM CHRONIC DISEASE VISIT due on 10/19/2022 COLORECTAL CANCER SCREENING due on 12/04/2022 DTAP,TDAP,TD(2 - Td or Tdap) due on 01/21/2023 HEPATITIS C SCREENING Completed HIV SCREENING Completed ASSESSMENT/PLAN: 1. Type 2 diabetes mellitus without complication, without long-term current use of insulin (HCC) - ICD9: 250.00, ICD10: E11.9 uncontrolled - Increase Lantus 24 units QPM - LANTUS SOLOSTAR U-100 INSULIN 100 UNIT/ML (3 ML) SUBCUTANEOUS PEN - follow-up in 2 weeks with blood sugar readings, sooner if having lows Rashawn Cortez APRN.[employer]ENSON Prescription instructions reviewed with patient as applicable. Patient advised if symptoms do not improve or if symptoms worsen sooner, to contact their primary care physician. Potential red flag symptoms discussed with the patient. Reviewed appropriate action plan to take if red flag symptoms occur. Patient agreeable to treatment plan. I spent a total of 20 minutes on the date of the service which included preparing to see the patient, [id number] patient care, completing clinical documentation, obtaining and/or reviewing separately obtained history, performing a medically appropriate examination, counseling and educating the patient/family/caregiver, and ordering medications, tests, or procedures. documented in this encounter [facility] 10-20-2021 Miscellaneous Notes I ordered Lantus for her yesterday, but will update rx. Was notified by insurance that Lantus is preferred brand. Could not complete prior authorization since patient has not tried any other insulin. Please file and send rx pended Lottie Espino Ma documented in this encounter [facility] 10-19-2021 History of Present illness Narrative Chief Complaint Patient presents with: Follow Up: Discuss going onto insulin. HPI Desiree Epperson is a 65 year old female who presents here today for Above Complaints. We have been unable to control patient's DM with oral medications and she has opted for insulin. Discussed alternative of SLT-2 and GLP-1, but patient is refusing. Reviewed long acting and short acting insulin, how to use, hypoglycemia, and sick days. Agreeable to start on Long acting insulin. Past medical history, appointments, medications, allergies reviewed. Previous Medical History PAST MEDICAL HISTORY Diagnosis Date Colon polyps Depression with anxiety Diabetes mellitus, type II (HCC) GERD (gastroesophageal reflux disease) Hyperlipidemia d/c self from zocor b/c of myalgias Hypertension Migraine Obesity (BMI 30-39.9) RAJ (obstructive sleep apnea) noncompliant with CPAP Previous Surgical History PAST SURGICAL HISTORY Procedure Laterality Date COLONOSCOPY 2001 COLONOSCOPY FLX DX W/COLLJ SPEC WHEN PFRMD 11/02/11 Colonoscopy repeat 3 years COLONOSCOPY FLX DX W/COLLJ SPEC WHEN PFRMD 12/04/2017 Colonoscopy ESOPHAGOGASTRODUODENOSCOPY TRANSORAL DIAGNOSTIC 11/02/11 EGD HYSTERECTOMY HX 1999 Dr. Silva. For excessive bleeding PAST SURGICAL HISTORY OF 1997 aprox. lumbar discectomy L5 PAST SURGICAL HISTORY OF 2005 Lap emilee. Family History FAMILY HISTORY Problem Relation Age of Onset Asthma Father Colon Cancer Maternal Aunt Colon Cancer Maternal Uncle Colon Cancer Maternal Uncle Emphysema Maternal Aunt Heart Maternal Aunt Heart Paternal Uncle CABG Diabetes Paternal Uncle Diabetes Paternal Uncle Heart Paternal Uncle [place] Hypertension Paternal Uncle Ischemic Heart Disease Paternal Uncle Alcohol/Drug Sister Patient Allergies ALLERGIES Allergen Reactions Demerol [Meperidine* GI Upset Jardiance [Empaglif* Other: See Comments Yeast infection Lisinopril Cough Vicodin [Hydrocodon* GI Upset Current Medications Current Outpatient Medications on File Prior to Visit Medication Sig citalopram (CELEXA) 20 mg tablet Take 1 tablet by mouth once daily. glimepiride (AMARYL) 4 mg tablet Take 2 tablets by mouth daily with breakfast. SITagliptin (JANUVIA) 100 mg tablet Take 1 tablet by mouth once daily. rosuvastatin (CRESTOR) 20 mg tablet Take 1 tablet by mouth daily at bedtime. valsartan (DIOVAN) 80 mg tablet Take 1 tablet by mouth once daily. hydroCHLOROthiazide (HYDRODIURIL, ESIDRIX) 12.5 mg capsule Take 1 capsule by mouth once daily. metFORMIN (GLUCOPHAGE) 1,000 mg tablet Take 1 tablet by mouth twice daily with meals. vitamin A-ceprgqcfimrs-aqscvil 500 mg chew Take by mouth. blood sugar diagnostic (BLOOD GLUCOSE TEST) test strip Test blood sugar(s) 2 times daily. Dx: Type 2 DM - Uncontrolled E11.65 Insulin: No Blood-Glucose Meter (ONE TOUCH ULTRAMINI) monitoring kit 1 Each as needed. Lancets (ONE TOUCH ULTRASOFT LANCETS) lancets Test blood sugar(s) 1 times daily. Dx:250.00, Insulin: no. Kabetogama-3 Fatty Acids-Vitamin E 1,000 mg cap Take 1 capsule by mouth. CALCIUM CARBONATE/VITAMIN D3 (CALCIUM 500 + D, D3, ORAL) Take by mouth. No current facility-administered medications on file prior to visit. Social History Social History Tobacco Use Smoking status: Former Packs/day: 1.00 Years: 10.00 Pack years: 10.00 Types: Cigarettes Quit date: 01/16/2011 Years since quittin.7 Smokeless tobacco: Never Vaping Use Vaping Use: Never used Substance Use Topics Alcohol use: Yes Comment: social- couple times a week Drug use: No Review of Symptoms REVIEW OF SYSTEMS GENERAL: No weight loss, malaise or fevers EXAM: BP 132/78 Pulse 96 Resp 16 SpO2 97% General Appearance: Well appearing, alert, in no acute distress, well-hydrated, well nourished.. Health Maintenance List SHINGRIX VACCINE(1 of 2) Never done BONE DENSITY Never done ADVANCE DIRECTIVE DISCUSSION Never done MAMMOGRAM due on 06/04/2021 DILATED RETINAL EXAM due on 06/08/2021 COVID-19 VACCINE(3 - Booster for Kj series) due on 06/30/2021 INFLUENZA(1) due on 11/11/2021 HBA1C due on 01/05/2022 URINE ALBUMIN:CREATININE RATIO due on 02/16/2022 LDL CHOLESTEROL due on 02/16/2022 DIABETIC FOOT EXAM due on 02/16/2022 BP CONTROLLED (<130/80) due on 02/16/2022 PNEUMOCOCCAL: 65+(2 - PCV) due on 02/16/2022 ANNUAL PCP TEAM CHRONIC DISEASE VISIT due on 10/05/2022 COLORECTAL CANCER SCREENING due on 12/04/2022 DTAP,TDAP,TD(2 - Td or Tdap) due on 01/21/2023 HEPATITIS C SCREENING Completed HIV SCREENING Completed Data reviewed Component Latest Ref Rng & Units 02/16/2021 10/05/2021 Protein, Total 6.3 - 8.0 g/dL 6.8 7.8 Albumin 3.9 - 4.9 g/dL 4.1 4.5 Calcium 8.5 - 10.2 mg/dL 9.3 10.6 (H) Bilirubin, Total 0.2 - 1.3 mg/dL 0.3 0.2 Alkaline Phosphatase 34 - 123 U/L 117 109 AST 13 - 35 U/L 16 19 Glucose 74 - 99 mg/dL 252 (H) 134 (H) BUN 7 - 21 mg/dL 14 16 Creatinine 0.58 - 0.96 mg/dL 0.60 0.67 Sodium 136 - 144 mmol/L 134 (L) 140 Potassium 3.7 - 5.1 mmol/L 4.2 4.7 Chloride 97 - 105 mmol/L 102 102 CO2 22 - 30 mmol/L 23 26 Anion Gap 9 - 18 mmol/L 9 12 ALT 7 - 38 U/L 22 27 eGFR- >60 eGFR-All Other Races . >60 eGFR >=60 mL/min/1.73m 97 WBC 3.70 - 11.00 k/uL 9.64 RBC 3.90 - 5.20 m/uL 4.60 Hemoglobin 11.5 - 15.5 g/dL 14.2 Hematocrit 36.0 - 46.0 % 43.0 MCV 80.0 - 100.0 fL 93.5 MCH 26.0 - 34.0 pG 30.9 MCHC 30.5 - 36.0 g/dL 33.0 RDW-CV 11.5 - 15.0 % 11.7 Platelet Count 150 - 400 k/uL 405 (H) MPV 9.0 - 12.7 fL 10.0 Absolute nRBC <0.01 k/uL <0.01 Total Cholesterol, Nonfasting <200 mg/dL 262 (H) Triglycerides, Nonfasting <150 mg/dL 317 (H) HDL Cholesterol, Nonfasting >39 mg/dL 31 (L) LDL Cholesterol, Nonfasting <100 mg/dL 168 (H) Non HDL Cholesterol, Nonfasting <130 mg/dL 231 (H) VLDL Cholesterol, Nonfasting <30 mg/dL 63 (H) Total Chol/HDL Ratio, Nonfasting <5.10 mg/dL 8.45 (H) LDL/HDL Ratio, Nonfasting <2.54 mg/dL 5.42 (H) Creatinine, Ur Random (UCRR) 20 - 300 mg/dL 114.7 Albumin, Urine Random mg/L 12.8 Albumin/Creat Ratio <30 mg/g 11 Hemoglobin A1C 4.3 - 5.6 % 9.1 (H) 8.1 (H) Estimated Average Glucose mg/dL 214 186 ASSESSMENT/PLAN: 1. Type 2 diabetes mellitus without complication, without long-term current use of insulin (HCC) - ICD9: 250.00, ICD10: E11.9 uncontrolled - Add Lantus 20 units QPM - Discontinue glimepiride (Amaryl) and Januvia. - Blood glucose monitoring on a three times a day schedule and call in 1 week with updated readings. - Encouraged regular aerobic exercise and weight loss - Follow up in 4 weeks, sooner should any other issues arise. 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 - INSULIN GLARGINE (U-100) 100 UNIT/ML (3 ML) SUBCUTANEOUS PEN I spent a total of 20 minutes on the date of the service which included preparing to see the patient, [id number] patient care, completing clinical documentation, obtaining and/or reviewing separately obtained history, performing a medically appropriate examination, counseling and educating the patient/family/caregiver, and ordering medications, tests, or procedures. Avril Murdock MD documented in this encounter [facility] 10-14-2021 Miscellaneous Notes Phoned patient and message left for her to return call so that she can schedule an OV to discuss insulin and additional info PCP feels pertinent. Ok, would have her schedule OV to discuss types of insulin, dosing, sick day usage, etc. Patient returned call. Reviewed provider's message with patient. She states she prefers to stop Januvia and Glimepiride and start Insulin. Beth Cole, RN Left message for patient to call office back Lottie Espino Ma Her diabetes is still uncontrolled on her current regimen. If she is not interested in this medication we could consider stopping her Januvia and switching her to a weekly injection which may help to lower her sugars further. Would she be willing to try this instead? Other alternatives would be stopping the Januvia and Glimepiride and starting her on insulin. Phoned patient and advised her of results and gave her PCP's message. Patient stated I drink quite a bit of water throughout the day and already urinate quite a bit. I just don't think i'm interested in going to the bathroom even more and increasing my risk for UTI. Advised her I would update her PCP. ----- Message from Avril Murdock MD sent at 10/14/2021 11:57 AM EDT ----- Diabetes is improving with A1c of 8.1 down from 9.1. Other labs normal. She is on the maximum dosage of her current medications for diabetes. Would adding on a daily medication that would make her urinate out more sugar and help to control her diabetes. It will likely make her pee more during the day and comes with rare side effect of urinary tract infections. Is this something she would be willing to try? documented in this encounter [facility] 10-05-2021 History of Present illness Narrative Chief Complaint Patient presents with: Follow Up HPI Desiree Epperson is a 65 year old female who presents here today for diabetes follow up. DIABETES MELLITUS: Ms. Epperson was last seen 6 months ago. Added Thiago in March for uncontrolled DM. Since our last visit she denies excessive thirst or increased frequency of urination, numbness, tingling or pain in extremities, new or unusual visual symptoms and low sugar/hypoglycemic reactions. Follows a diabetic diet most of the time. She is compliant with medication(s) and is tolerating med(s) without any side effects. She reports checking her glucose on a once a day schedule with sugars in the fasting 150-180 range. Patient's last HgA1C was Hemoglobin A1C (%) Date Value 02/16/2021 9.1 06/01/2020 8.2 ) Last Ophthalmology exam was more than 12 months ago. Has appointment 11/03 in [place]. Last Podiatry exam was within the past 12 months Patient thought that Crestor was the same as the Valsartan, so stopped her Valsartan. Refill sent for valsartan on 09/14. Patient will pick this up and restart it. RAJ: patient has CPAP device at home, but has not used in a couple years. Does not want to wear a full face mask and would like to talk to sleep medicine about settings and mask options. Past medical history, appointments, medications, allergies reviewed. Previous Medical History PAST MEDICAL HISTORY Diagnosis Date Colon polyps Depression with anxiety Diabetes mellitus, type II (HCC) GERD (gastroesophageal reflux disease) Hyperlipidemia d/c self from zocor b/c of myalgias Hypertension Migraine Obesity (BMI 30-39.9) RAJ (obstructive sleep apnea) noncompliant with CPAP Previous Surgical History PAST SURGICAL HISTORY Procedure Laterality Date COLONOSCOPY 2001 COLONOSCOPY FLX DX W/COLLJ SPEC WHEN PFRMD 11/02/11 Colonoscopy repeat 3 years COLONOSCOPY FLX DX W/COLLJ SPEC WHEN PFRMD 12/04/2017 Colonoscopy ESOPHAGOGASTRODUODENOSCOPY TRANSORAL DIAGNOSTIC 11/02/11 EGD HYSTERECTOMY HX 1999 Dr. Silva. For excessive bleeding PAST SURGICAL HISTORY OF 1997 aprox. lumbar discectomy L5 PAST SURGICAL HISTORY OF 2005 Lap emilee. Family History FAMILY HISTORY Problem Relation Age of Onset Asthma Father Colon Cancer Maternal Aunt Colon Cancer Maternal Uncle Colon Cancer Maternal Uncle Emphysema Maternal Aunt Heart Maternal Aunt Heart Paternal Uncle CABG Diabetes Paternal Uncle Diabetes Paternal Uncle Heart Paternal Uncle [place] Hypertension Paternal Uncle Ischemic Heart Disease Paternal Uncle Alcohol/Drug Sister Patient Allergies ALLERGIES Allergen Reactions Demerol [Meperidine* GI Upset Jardiance [Empaglif* Other: See Comments Yeast infection Lisinopril Cough Vicodin [Hydrocodon* GI Upset Current Medications Current Outpatient Medications on File Prior to Visit Medication Sig glimepiride (AMARYL) 4 mg tablet Take 2 tablets by mouth daily with breakfast. SITagliptin (JANUVIA) 100 mg tablet Take 1 tablet by mouth once daily. rosuvastatin (CRESTOR) 20 mg tablet Take 1 tablet by mouth daily at bedtime. citalopram (CELEXA) 20 mg tablet Take 1 tablet by mouth once daily. hydroCHLOROthiazide (HYDRODIURIL, ESIDRIX) 12.5 mg capsule Take 1 capsule by mouth once daily. metFORMIN (GLUCOPHAGE) 1,000 mg tablet Take 1 tablet by mouth twice daily with meals. vitamin L-wgeqnkonbesk-sroqyct 500 mg chew Take by mouth. blood sugar diagnostic (BLOOD GLUCOSE TEST) test strip Test blood sugar(s) 2 times daily. Dx: Type 2 DM - Uncontrolled E11.65 Insulin: No Blood-Glucose Meter (ONE TOUCH ULTRAMINI) monitoring kit 1 Each as needed. Lancets (ONE TOUCH ULTRASOFT LANCETS) lancets Test blood sugar(s) 1 times daily. Dx:250.00, Insulin: no. [employer]-3 Fatty Acids-Vitamin E (FISH OIL) 1,000 mg cap Take 1 capsule by mouth. CALCIUM CARBONATE/VITAMIN D3 (CALCIUM 500 + D, D3, ORAL) Take by mouth. valsartan (DIOVAN) 80 mg tablet Take 1 tablet by mouth once daily. (Patient not taking: Reported on 10/05/2021 ) No current facility-administered medications on file prior to visit. Social History Social History Tobacco Use Smoking status: Former Smoker Packs/day: 1.00 Years: 10.00 Pack years: 10.00 Types: Cigarettes Quit date: 01/16/2011 Years since quittin.7 Smokeless tobacco: Never Used Vaping Use Vaping Use: Never used Substance Use Topics Alcohol use: Yes Comment: social- couple times a week Drug use: No Review of Symptoms REVIEW OF SYSTEMS GENERAL: No weight loss, malaise or fevers RESPIRATORY: Negative for cough, hemoptysis, wheezing, COPD, dyspnea or shortness of breath CARDIOVASCULAR: Negative for chest pain, leg swelling, hypertension, CHF or palpitations GI: No nausea, vomiting, or diarrhea SKIN: Negative for lesions, rash, and itching EXAM: BP 134/70 Pulse 100 Resp 16 Wt 97.6 kg (215 lb 3.2 oz) SpO2 95% BMI 39.05 kg/m General Appearance: Well appearing, alert, in no acute distress, well-hydrated, well nourished.. Skin: Skin color, texture, turgor normal, no suspicious rashes or lesions. Lungs: Lungs clear to auscultation. No wheezing, rhonchi, rales.. Heart: RRR without murmur, gallop, or rubs. No ectopy. Abdomen: Normal abdominal exam, Abdomen soft, non-tender. Bowel sounds normal. No masses, organomegaly. Extremities: No deformities, edema, skin discoloration, clubbing or cyanosis. Good capillary refill. . Health Maintenance List SHINGRIX VACCINE(1 of 2) Never done BONE DENSITY Never done ADVANCE DIRECTIVE DISCUSSION Never done HBA1C due on 05/17/2021 MAMMOGRAM due on 06/04/2021 DILATED RETINAL EXAM due on 06/08/2021 COVID-19 VACCINE(3 - Booster for Kj series) due on 06/30/2021 INFLUENZA(1) due on 11/11/2021 URINE ALBUMIN:CREATININE RATIO due on 02/16/2022 LDL CHOLESTEROL due on 02/16/2022 DIABETIC FOOT EXAM due on 02/16/2022 BP CONTROLLED (<130/80) due on 02/16/2022 PNEUMOCOCCAL: 65+(2 - PCV) due on 02/16/2022 ANNUAL PCP TEAM CHRONIC DISEASE VISIT due on 03/16/2022 COLORECTAL CANCER SCREENING due on 12/04/2022 DTAP,TDAP,TD(2 - Td or Tdap) due on 01/21/2023 HEPATITIS C SCREENING Completed HIV SCREENING Completed Data reviewed Component Latest Ref Rng & Units 02/16/2021 Protein, Total 6.3 - 8.0 g/dL 6.8 Albumin 3.9 - 4.9 g/dL 4.1 Calcium 8.5 - 10.2 mg/dL 9.3 Bilirubin, Total 0.2 - 1.3 mg/dL 0.3 Alkaline Phosphatase 34 - 123 U/L 117 AST 13 - 35 U/L 16 Glucose 74 - 99 mg/dL 252 (H) BUN 7 - 21 mg/dL 14 Creatinine 0.58 - 0.96 mg/dL 0.60 Sodium 136 - 144 mmol/L 134 (L) Potassium 3.7 - 5.1 mmol/L 4.2 Chloride 97 - 105 mmol/L 102 CO2 22 - 30 mmol/L 23 Anion Gap 9 - 18 mmol/L 9 ALT 7 - 38 U/L 22 eGFR- >60 eGFR-All Other Races . >60 WBC 3.70 - 11.00 k/uL 9.64 RBC 3.90 - 5.20 m/uL 4.60 Hemoglobin 11.5 - 15.5 g/dL 14.2 Hematocrit 36.0 - 46.0 % 43.0 MCV 80.0 - 100.0 fL 93.5 MCH 26.0 - 34.0 pG 30.9 MCHC 30.5 - 36.0 g/dL 33.0 RDW-CV 11.5 - 15.0 % 11.7 Platelet Count 150 - 400 k/uL 405 (H) MPV 9.0 - 12.7 fL 10.0 Absolute nRBC <0.01 k/uL <0.01 Total Cholesterol, Nonfasting <200 mg/dL 262 (H) Triglycerides, Nonfasting <150 mg/dL 317 (H) HDL Cholesterol, Nonfasting >39 mg/dL 31 (L) LDL Cholesterol, Nonfasting <100 mg/dL 168 (H) Non HDL Cholesterol, Nonfasting <130 mg/dL 231 (H) VLDL Cholesterol, Nonfasting <30 mg/dL 63 (H) Total Chol/HDL Ratio, Nonfasting <5.10 mg/dL 8.45 (H) LDL/HDL Ratio, Nonfasting <2.54 mg/dL 5.42 (H) Creatinine, Ur Random (UCRR) 20 - 300 mg/dL 114.7 Albumin, Urine Random mg/L 12.8 Albumin/Creat Ratio <30 mg/g 11 Hemoglobin A1C 4.3 - 5.6 % 9.1 (H) Estimated Average Glucose mg/dL 214 ASSESSMENT/PLAN: 1. Type 2 diabetes mellitus without complication, without long-term current use of insulin (HCC) - ICD9: 250.00, ICD10: E11.9 (primary diagnosis) poorly controlled - Continue current medications and will await A1C to make med changes. - Blood glucose monitoring on a twice a day schedule - Encouraged regular aerobic exercise and weight loss - Daily Asprin therapy recommended - Follow up in 3 months, sooner should any other issues arise. 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 - HGB A1C - COMP METABOLIC PANEL 2. Essential hypertension - ICD9: 401.9, ICD10: I10 - good control - Continue current medication(s) - Encouraged dietary sodium restriction/DASH diet - Recommended regular aerobic exercise. - Reviewed risks of HTN and principles of treatment - Goal of BP <140/90 3. Mixed hyperlipidemia - ICD9: 272.2, ICD10: E78.2 - to be determined upon return of lab results - Continue current medication. - Encouraged following a low fat, low cholesterol diet. - Discussed the benefits of regular aerobic exercise and weight loss. - LIPID PANEL, NONFASTING 4. RAJ (obstructive sleep apnea) - ICD9: 327.23, ICD10: G47.33 Patient requesting referral to sleep medicine due to difficulties with CPAP machine/mask. Discussed importance of weight loss and nightly CPAP use. - CONSULT TO SLEEP MEDICINE - ADULT Avril Murdock MD documented in this encounter [facility] 09-27-2021 Miscellaneous Notes NOV 10/05/21 Pharmacy verified in [facility] Patient has been identified by name and date of : Yes Patient aware RX will be sent to pharmacy. No need to notify patient. Patient phones for refill(s): Pending Prescriptions Disp Refills GLIMEPIRIDE 4 MG TABLET 180 tablet 0 Sig: Take 2 tablets by mouth daily with breakfast. CECIL: No SITAGLIPTIN 100 MG TABLET 90 tablet 0 Sig: Take 1 tablet by mouth once daily. CECIL: No Date of last office visit : 03/16/2021 Date of next office visit : Visit date not found Last 2 Encounter Wt Readings: Date: Wt: 03/16/2021 97.6 kg (215 lb 3.2 oz) 02/16/2021 98.4 kg (217 lb) Please advise. Yvonne Ch Pss documented in this encounter [facility] 09-14-2021 Miscellaneous Notes Patient is due for follow-up. Please assist in scheduling. Rashawn Cortez APRN.EBNSON Patient phones requesting refills as follows: Pending Prescriptions Disp Refills ROSUVASTATIN 20 MG TABLET 30 tablet 5 Sig: Take 1 tablet by mouth daily at bedtime. CECIL: No CITALOPRAM 20 MG TABLET 30 tablet 5 Sig: Take 1 tablet by mouth once daily. CECIL: No VALSARTAN 80 MG TABLET 90 tablet 0 Sig: Take 1 tablet by mouth once daily. CECIL: No HYDROCHLOROTHIAZIDE 12.5 MG CAPSULE 90 capsule 0 Sig: Take 1 capsule by mouth once daily. CECIL: No FERNANDO 03/16/21 No upcoming appointment scheduled. Please review and advise. Eusebia Dalal LPN documented in this encounter [facility] 09-14-2021 Miscellaneous Notes Patient phones requesting refills as follows: Pending Prescriptions Disp Refills METFORMIN 1,000 MG TABLET 180 tablet 2 Sig: Take 1 tablet by mouth twice daily with meals. CECIL: No FERNANDO 03/16/21 No upcoming appointment scheduled. Patient telephoned. Message left to call back. Patient has labs that need completed yet. Please review and advise. Eusebia Dalal LPN documented in this encounter [facility] documented in this encounter [facility] note* Diagnosis Type 2 diabetes mellitus without complication, without long-term current use of insulin (HCC) documented in this encounter [facility] note* Diagnosis Depression with anxiety Dysthymic disorder Essential hypertension Unspecified essential hypertension documented in this encounter [facility] note* Diagnosis Depression with anxiety Dysthymic disorder Type 2 diabetes mellitus without complication, without long-term current use of insulin (HCC) documented in this encounter [facility] note* Diagnosis Type 2 diabetes mellitus without complication, without long-term current use of insulin (HCC)- Primary Essential hypertension Unspecified essential hypertension Mixed hyperlipidemia RAJ (obstructive sleep apnea) Obstructive sleep apnea (adult) (pediatric) documented in this encounter [facility] note* Diagnosis Type 2 diabetes mellitus without complication, without long-term current use of insulin (HCC)- Primary documented in this encounter [facility] note* Diagnosis Type 2 diabetes mellitus without complication, without long-term current use of insulin (HCC)- Primary documented in this encounter [facility] note* Diagnosis Type 2 diabetes mellitus without complication, without long-term current use of insulin (HCC) documented in this encounter [facility] note* Diagnosis Essential hypertension Unspecified essential hypertension Type 2 diabetes mellitus without complication, without long-term current use of insulin (HCC) documented in this encounter [facility] note* Diagnosis Type 2 diabetes mellitus without complication, without long-term current use of insulin (HCC)- Primary documented in this encounter [facility] note* Diagnosis Type 2 diabetes mellitus without complication, without long-term current use of insulin (HCC)- Primary documented in this encounter [facility] note* Diagnosis Type 2 diabetes mellitus without complication, without long-term current use of insulin (HCC) documented in this encounter [facility] note* Diagnosis Type 2 diabetes mellitus without complication, without long-term current use of insulin (HCC)- Primary Essential hypertension Unspecified essential hypertension Screening for osteoporosis Special screening for osteoporosis Obesity, Class II, BMI 35-39.9 Obesity, unspecified Mixed hyperlipidemia ELLY (generalized anxiety disorder) Generalized anxiety disorder [facility] Diagnosis Type 2 diabetes mellitus without complication, without long-term current use of insulin (HCC) documented in this encounter [facility] note* Diagnosis Screening for osteoporosis Special screening for osteoporosis documented in this encounter [facility] for referral (narrative)* Diagnostic Procedure Only (Routine) - Pending Review Specialty Diagnoses / Procedures Referred By Kaylie perdomo Referred To Contact [facility] Diagnoses Encounter for screening mammogram for breast cancer Procedures IRINA SCREENING SCREENING MAMMOGRAPHY BI 2-VIEW BREAST INC CAD Avril Murdock MD [address] [place] [address] [facility] [address] [place] [address] Referral ID Status Reason Start Date Expiration Date Visits Requested Visits Authorized [id number] Pending Review Auto-Generat ed Referral 07/21/2021 08/20/2022 1 1 [facility] Summary Purpose Family History No Family History Records FoundNo Family History Records FoundNo Family History Records Found Advance Directives No Advanced Directives Records FoundNo Advanced Directives Records FoundNo Advanced Directives Records Found Reason for Referral Specialty Diagnoses / Procedures Referred By Kaylie perdomo Referred To Contact Diagnoses RAJ (obstructive sleep apnea) Procedures CONSULT TO SLEEP MEDICINE - ADULT OFFICE/OUTPATIENT [facility] 60-74 MINUTES Avril Murdock MD [address] [place] [address] Referral ID Status Reason Start Date Expiration Date Visits Requested Visits Authorized [id number] Authorized PCP Requested Referral 10/05/2021 10/05/2022 1 1 Additional Source Comments INFORMATION SOURCE (unrecogn ized section and content) DATE CREATED AUTHOR AUTHOR'S ORGANIZ ATION 11/27/2022 [facility] DATE CREATED AUTHOR AUTHOR'S ORGANIZ ATION 11/28/2022 [facility] Source Comments (unrecognize d section and content) In the event this informatio n is protected by the Federal Confidentiality of Alcohol and Drug Abuse Patient Records regulations: The Federal rules restrict any use of the information to criminally investigate or prosecute any alcohol or drug abuse patient.[facility] the event this information is protected by the Federal Confidentiality of Alcohol and Drug Abuse Patient Records regulations: The Federal rules restrict any use of the information to criminally investigate or prosecute any alcohol or drug abuse patient.[facility] the event this information is protected by the Federal Confidentiality of Alcohol and Drug Abuse Patient Records regulations: The Federal rules restrict any use of the information to criminally investigate or prosecute any alcohol or drug abuse patient.[facility] the event this information is protected by the Federal Confidentiality of Alcohol and Drug Abuse Patient Records regulations: The Federal rules restrict any use of the information to criminally investigate or prosecute any alcohol or drug abuse patient.[facility] Hospital[facility] the event this information is protected by the Federal Confidentiality of Alcohol and Drug Abuse Patient Records regulations: The Federal rules restrict any use of the information to criminally investigate or prosecute any alcohol or drug abuse patient.[facility] Hospital[facility] the event this information is protected by the Federal Confidentiality of Alcohol and Drug Abuse Patient Records regulations: The Federal rules restrict any use of the information to criminally investigate or prosecute any alcohol or drug abuse patient.[facility] Hospital[facility] the event this information is protected by the Federal Confidentiality of Alcohol and Drug Abuse Patient Records regulations: The Federal rules restrict any use of the information to criminally investigate or prosecute any alcohol or drug abuse patient.[facility] Hospital[facility] the event this information is protected by the Federal Confidentiality of Alcohol and Drug Abuse Patient Records regulations: The Federal rules restrict any use of the information to criminally investigate or prosecute any alcohol or drug abuse patient.[facility] Hospital[facility] the event this information is protected by the Federal Confidentiality of Alcohol and Drug Abuse Patient Records regulations: The Federal rules restrict any use of the information to criminally investigate or prosecute any alcohol or drug abuse patient.[facility] HospitalIn the event this information is protected by the Federal Confidentiality of Alcohol and Drug Abuse Patient Records regulations: The Federal rules restrict any use of the information to criminally investigate or prosecute any alcohol or drug abuse patient.[facility] HospitalIn the event this information is protected by the Federal Confidentiality of Alcohol and Drug Abuse Patient Records regulations: The Federal rules restrict any use of the information to criminally investigate or prosecute any alcohol or drug abuse patient.[facility] HospitalIn the event this information is protected by the Federal Confidentiality of Alcohol and Drug Abuse Patient Records regulations: The Federal rules restrict any use of the information to criminally investigate or prosecute any alcohol or drug abuse patient.[facility] HospitalIn the event this information is protected by the Federal Confidentiality of Alcohol and Drug Abuse Patient Records regulations: The Federal rules restrict any use of the information to criminally investigate or prosecute any alcohol or drug abuse patient.[facility] HospitalIn the event this information is protected by the Federal Confidentiality of Alcohol and Drug Abuse Patient Records regulations: The Federal rules restrict any use of the information to criminally investigate or prosecute any alcohol or drug abuse patient.[facility] HospitalIn the event this information is protected by the Federal Confidentiality of Alcohol and Drug Abuse Patient Records regulations: The Federal rules restrict any use of the information to criminally investigate or prosecute any alcohol or drug abuse patient.[facility] HospitalIn the event this information is protected by the Federal Confidentiality of Alcohol and Drug Abuse Patient Records regulations: The Federal rules restrict any use of the information to criminally investigate or prosecute any alcohol or drug abuse patient.[facility] HospitalIn the event this information is protected by the Federal Confidentiality of Alcohol and Drug Abuse Patient Records regulations: The Federal rules restrict any use of the information to criminally investigate or prosecute any alcohol or drug abuse patient.[facility] HospitalIn the event this information is protected by the Federal Confidentiality of Alcohol and Drug Abuse Patient Records regulations: The Federal rules restrict any use of the information to criminally investigate or prosecute any alcohol or drug abuse patient.[facility] HospitalIn the event this information is protected by the Federal Confidentiality of Alcohol and Drug Abuse Patient Records regulations: The Federal rules restrict any use of the information to criminally investigate or prosecute any alcohol or drug abuse patient.[facility] HospitalIn the event this information is protected by the Federal Confidentiality of Alcohol and Drug Abuse Patient Records regulations: The Federal rules restrict any use of the information to criminally investigate or prosecute any alcohol or drug abuse patient.[facility] Care Teams (unrecognized sec tion and content) Retail Sales Director Relationship Specialty Start Date End Date Avril Murdock MD [address] [facility] [place] [address] PCP - General Family Practice 08/28/17 Avril Murdock MD [address] [facility] [place] [address] Family Practice 08/28/17 Retail Sales Director Relationship Specialty Start Date End Date Avril Murdock MD [address] [facility] [place] [address] PCP - General Family Practice 08/28/17 Avril Murdock MD [address] [facility] [place] [address] Family Practice 08/28/17 Retail Sales Director Relationship Specialty Start Date End Date Avril Murdock MD [address] [facility] [place] [address] PCP - General Family Practice 08/28/17 Avril Murdock MD [address] [facility] [place] [address] Family Practice 08/28/17 Retail Sales Director Relationship Specialty Start Date End Date Avril Murdock MD [address] [facility] [place] [address] PCP - General Family Practice 08/28/17 Avril Murdock MD [address] [facility] [place] [address] Family Practice 08/28/17 Retail Sales Director Relationship Specialty Start Date End Date Avril Murdock MD [address] [facility] [place] [address] PCP - General Family Practice 08/28/17 Avril Murdock MD [address] [facility] [place] [address] Family Practice 08/28/17 Retail Sales Director Relationship Specialty Start Date End Date Avril Murdock MD [address] [facility] [place] [address] PCP - General Family Practice 08/28/17 Avril Murdock MD [address] [facility] [place] [address] Family Practice 08/28/17 Retail Sales Director Relationship Specialty Start Date End Date Avril Murdock MD [address] [facility] [place] [address] PCP - General Family Practice 08/28/17 Avril Murdock MD [address] [facility] [place] [address] Family Practice 08/28/17 Retail Sales Director Relationship Specialty Start Date End Date Avril Murdock MD [address] [facility] [place] [address] PCP - General Family Practice 08/28/17 Avril Murdock MD [address] [facility] [place] [address] Family Practice 08/28/17 Retail Sales Director Relationship Specialty Start Date End Date Avril Murdock MD [address] [facility] [place] [address] PCP - General Family Medicine 08/28/17 Avril Murdock MD [address] [facility] [place] [address] Family Medicine 08/28/17 Retail Sales Director Relationship Specialty Start Date End Date Avril Murdock MD [address] [place] [address] PCP - General Family Medicine 08/28/17 Avril Murdock MD [address] [facility] [place] [address] Family Medicine 08/28/17 Retail Sales Director Relationship Specialty Start Date End Date Avril Murdock MD [address] [facility] [place] [address] PCP - General Family Medicine 08/28/17 Avril Murdock MD [address] [facility] [place] [address] Family Medicine 08/28/17 Retail Sales Director Relationship Specialty Start Date End Date Avril Murdock MD [address] [facility] [place] [address] PCP - General Family Medicine 08/28/17 Avril Murdock MD [address] [facility] [place] [address] Family Medicine 08/28/17 Retail Sales Director Relationship Specialty Start Date End Date Avril Murdock MD [address] [facility] [place] [address] PCP - General Family Medicine 08/28/17 Avril Murdock MD [address] [facility] [place] [address] Family Medicine 08/28/17 Retail Sales Director Relationship Specialty Start Date End Date Avril Murdock MD [address] [facility] [place] [address] PCP - General Family Medicine 08/28/17 Avril Murdock MD [address] [facility] [place] [address] Family Medicine 08/28/17 Retail Sales Director Relationship Specialty Start Date End Date Avril Murdock MD [address] [facility] [place] [address] PCP - General Family Medicine 08/28/17 Avril Murdock MD [address] [facility] [place] [address] Family Medicine 08/28/17 Retail Sales Director Relationship Specialty Start Date End Date Avril Murdock MD [address] [facility] [place] [address] PCP - General Family Medicine 08/28/17 Avril Murdock MD [address] [facility] [place] [address] Family Medicine 08/28/17 Retail Sales Director Relationship Specialty Start Date End Date Avril Murdock MD [address] [facility] [place] [address] PCP - General Family Medicine 08/28/17 Avril Murdock MD [address] [facility] [place] [address] Family Medicine 08/28/17 Retail Sales Director Relationship Specialty Start Date End Date Avril Murdock MD [address] [facility] [place] [address] PCP - General Family Medicine 08/28/17 Avril Murdock MD [address] [facility] [place] [address] Family Medicine 08/28/17 Reason for Visit (unrecogniz ed section and content) Reason Onset Date Comments Refill Request 09/27/2021 Reason Comments Follow Up Reason Comments Appointment Reason Comments Insurance Authorization Kurt Webster Reason Comments Follow Up Discuss going onto i nsulin. Reason Comments Follow Up 4 week DM follow up; started insulin Reason Onset Date Comments Refill Request 11/19/2021 Reason Onset Date Comments Refill Request 12/29/2021 Reason Comments Results A1C Reason Onset Date Comments Refill Request 03/17/2022 Reason Comments F/U 3 Month Reason Comments Results FOR RECORDS PERTAINING TO PATIENTS WHO ARE OR HAVE BEEN ENROLLED IN A CHEMICAL DEPENDENCY/SUBSTANCEABUSE PROGRAM, SOME INFORMATION MAY BE OMITTED. This clinical summary was aggregated from multiple sources. Caution should be exercised in using it in the provision of clinical care. This summary normalizes information from multiple sources, and as a consequence, information in this document may materially change the coding, format and clinical context of patient data. In addition, data may be omitted in some cases. CLINICAL DECISIONS SHOULD BE BASED ON THE PRIMARY CLINICAL RECORDS. [facility] [employer], [facility]. provides no warranty or guarantee of the accuracy or completeness of information in this document.
[2023-03-09] MEDS: Ondansetron 4 MG/2 ML Vial IV ×2 (20:59→22:42)
[2023-03-09] MEDS: 0.9% Normal Saline (1000mL) 1,000 ML 1000 ML IV (20:59)
[2023-03-09 21:03] LABS: Mucous, Urine 0 SEEN /hpf (<or=2+)
[2023-03-09 21:08] VITALS: BP 123/64; PULSE 80; RESP 16; TEMP 36.8; O2SAT 97
[2023-03-09 21:08] LABS: Color, Urine Yellow (Yellow); Glucose, Dipstick 100 mg/dl (Normal); Leukocyte Esterase-Dipstick 500 /ul (Negative); Nitrite-Dipstick Negative (Negative); Occult Blood-Urine 250 /ul (Negative); Protein-Dipstick 500 mg/dl (Negative); Specific Gravity, Urine 1.015 (1.002-1.030); Urine Clarity Cloudy (Clear); Urine Urobilinogen 1 mg/dl (Normal)
[2023-03-09 21:12] LABS: Urine Bilirubin Dipstick 1 mg/dL (Negative)
[2023-03-09 21:13] LABS: Ketone-Dipstick 150 mg/dl (Negative)
[2023-03-09 21:14] LABS: White Blood Cells 25-50 SEEN /hpf (0-5)
[2023-03-09 21:15] LABS: Bacteria 3+ /hpf (None Seen); Red Blood Cells-Urine 5-10 SEEN /hpf (0-5); Squamous Epithelial Cells - UA 0-5 SEEN /hpf (5-10)
[2023-03-09 21:28] LABS: Absolute Lymphocyte Count 0.75 X10^3/uL (0.83-4.51); Absolute Neutrophil Count 13.1 X10^3/uL (2.0-7.7); Basophil# 0.07 X10^3/uL; Basophil% 0.4 % (0-1); Eosinophil# 0.74 X10^3/uL; Eosinophils% 4.6 % (0-5); Hematocrit 36.6 % (37-47); Hemoglobin 12.5 g/dL (12.0-15.0); Lymphocyte # 0.75 X10^3/ul (0.83-4.51); Lymphocyte % 4.7 % (19-41); Mean Corp Hgb Conc 34.2 g/dL (32-36); Mean Corpuscular Hgb 30.5 pg (27.0-32.0); Mean Corpuscular Volume 89.3 fL (81-99); Monocyte# 1.24 X10^3/uL; Monocyte% 7.8 % (0-10); NRBC Flagged by Analyzer 0 % (0-5); Neutrophil % 82.1 % (47-70); POSITIVE MORPHOLOGY YES; Platelet Count 317 K/mm3 (150-450); RBC Distribution Width CV 12.1 % (11.6-14.6); RBC Distribution Width SD 39.2 fl (35.1-43.9)
[2023-03-09 21:29] LABS: Differential Indicated SCAN CRITERIA MET
[2023-03-09 21:34] LABS: ALB/GLOB Ratio 0.9 RATIO (0.9-2.4); AST(SGOT) 41 U/L (15-37); Alanine Aminotransfer ALT/SGPT 36 U/L (13-56); Albumin, Serum 3.1 g/dL (3.2-5.0); Alkaline Phosphatase 127 U/L (45-117); Anion Gap 10 (5-15); BUN 15 mg/dL (7-18); BUN/Creat Ratio 19.2 RATIO (10-20); Chloride 102 mmol/L (98-107); Creatinine, Serum 0.78 mg/dL (0.55-1.02); EST Glomerular Filtration Rate 78 mL/min (>60); Est Glom Filt Rate - Afr Amer 95 mL/min (>60); Estimated Creatinine Clearance 43.18 ml/min; Globulin 3.4 g/dL (2.2-4.2); Glucose 309 mg/dL (74-106); Potassium 3.7 mmol/L (3.5-5.1); Protein, Total 6.5 g/dL (6.4-8.2); Sodium Level 133 mmol/L (136-145)
[2023-03-09 21:50] LABS: Anisocytosis RARE; Platelet Estimate ADEQUATE (ADEQ); Red Cell Morphology N CHROM NORMAL (NORM C&C)
[2023-03-09 21:51] LABS: Macrocytosis RARE; Ovalocyte RARE
[2023-03-09] MEDS: Ceftriaxone 1 GM/50 ML BAG IV (22:29)
[2023-03-09 22:44] VITALS: BP 111/66; PULSE 75; RESP 16; O2SAT 97
== END 2023-03-09 22:50 | disposition home or self-care (01) ==
PROVIDERS: Emergency Provider Emergency Medicine; Referring Provider Emergency Medicine; Visit Provider Emergency Medicine
DX: N10 Acute pyelonephritis (principal); E11.65 Type 2 diabetes mellitus with hyperglycemia; D72.829 Elevated white blood cell count, unspecified; N39.0 Urinary tract infection, site not specified; F41.9 Anxiety disorder, unspecified; F32.A Depression, unspecified; I10 Essential (primary) hypertension; Z79.84 Long term (current) use of oral hypoglycemic drugs; Z79.899 Other long term (current) drug therapy; Z87.891 Personal history of nicotine dependence
CPT/HCPCS: 71045; 80053; 81001; 85025; 96361; 96365; 96375; 96376; 99282; J7030; A4216; J2405

== ENCOUNTER → 2023-09-16 | Outpatient (CLI) | payer OTHER, SELFPAY ==
--- NOTE | 2023-09-16 10:03 | CT_ITS ---
STUDY: CT ABDOMEN AND PELVIS WITHOUT CONTRAST REASON FOR EXAM: Female, 67 years old. Right flank pain RADIATION DOSAGE (If Supplied By Facility): CTDIvol = ( 16.93 ) mGy, DLP = ( 795.26 ) mGycm TECHNIQUE: Transaxial images were obtained from the dome of the diaphragm to the symphysis pubis without oral contrast, and without intravenous contrast. Sagittal and coronal images were reconstructed. Individualized dose optimization techniques were used for this CT. COMPARISON: None. FINDINGS: The visualized lung bases are unremarkable. The visualized portions of the heart are within normal limits. Normal liver. There are surgical clips in the gallbladder fossa consistent with a prior cholecystectomy. Normal spleen. Normal pancreas. Normal bilateral adrenal glands. Normal right kidney. Normal left kidney. Normal visualized stomach. Normal small intestine. Scattered colonic diverticula, no CT evidence of acute diverticulitis. There is non-visualization of the appendix. There is diffuse atherosclerotic calcification of the abdominal aorta, without a demonstrated aneurysm. Normal inferior vena cava. Normal retroperitoneum. Normal urinary bladder. There is absence of the uterus consistent with a prior hysterectomy. Normal abdominal wall. There are diffuse degenerative changes of the visualized lumbar spine, and pelvis. CT/Abdomen/Pelvis without Cont IMPRESSION: No suspicious solid organ abnormality, specifically, no obstructive uropathy or suspicious solid renal lesion Scattered colonic diverticula, no CT evidence of acute diverticulitis No free intraperitoneal fluid, air, or suspicious adenopathy Electronically Signed: Gildardo Colon MD at 14:17 EDT ,
== END | disposition home or self-care (01) ==
PROVIDERS: PCP Nurse Practitioner Family; Referring Provider Urology; Visit Provider Urology
DX: N20.1 Calculus of ureter (principal)
CPT/HCPCS: 74176

== ENCOUNTER → 2025-02-27 | Outpatient (CLI) | payer MEDICARE, BC, SELFPAY ==
--- NOTE | 2025-02-27 16:17 | MRI_ITS ---
PROCEDURE: BRAIN WITHOUT CONTRAST 02/27/2025 REASON FOR EXAM: TIA/CVA; APHASIA; DYSARTHRIA TECHNIQUE: Procedure Code: MRIBR Modality: MR Procedure: BRAIN WITHOUT CONTRAST Multiplanar and multisequence images were obtained. COMPARISON: None FINDINGS: A tiny right basal ganglia focus of diffusion restriction is seen suggesting acute ischemic focus. There is a small left internal capsule focus of high diffusion signal without restriction and ADC map is corresponding high T2 signal intensity likely representing subacute infarct. There are multiple scattered bilateral cerebral fronto-paretial subcortical and periventricular white matter as well as pontine foci of high T2/FLAIR signal seen with associated bilateral periventricular white matter sheets of similar signal pattern, reflecting chronic small vessel disease. There is mildly prominent ventricles and extra-axial spaces as well as the cerebellar folia for the patient's age denoting volume loss. Normal bilateral basal ganglia. Normal thalami. There is no extra-axial fluid accumulation. Normal flow voids within the major intracranial circulation suggesting patency by spin echo criteria. Normal tectal plate and pineal gland. Normal midbrain, dorcas and medulla. Prominent basal cisterns. Normal bilateral temporal bones. No demonstrated orbital abnormality, within the constraints of a routine brain study. Normal visualized paranasal sinuses. Normal calvarium and skull base. Normal visualized soft tissue structures. Normal visualized upper cervical spine. MRI/Brain without Contrast IMPRESSION: Tiny right basal ganglia acute ischemic focus or infarction. Left internal capsule subacute infarction. Chronic small vessel disease. Brain involutional changes. Reading [place] [id number]
== END | disposition home or self-care (01) ==
LOC: MRI 16:15
PROVIDERS: PCP Family Medicine
DX: G45.9 Transient cerebral ischemic attack, unspecified (principal); R47.1 Dysarthria and anarthria; R13.10 Dysphagia, unspecified; R47.01 Aphasia
CPT/HCPCS: 70551